=== PATIENT | male | born 1950 | race Caucasian/White ===

== ENCOUNTER → 2020-06-14 09:12 | Outpatient (BNVA) | payer MEDICARE, SELFPAY | PROVIDERS: Family Provider Nurse Practitioner Family; PCP Family Medicine; Visit Provider Nurse Practitioner Family | DX: Z20.822 Contact with and (suspected) exposure to COVID-19 (principal) | CPT/HCPCS: 87635 ==

== ENCOUNTER 2020-06-18 10:50 | Outpatient (CLI) | payer MEDICARE, SELFPAY ==
--- NOTE | 2020-06-18 13:40 | PFTS_ITS ---
Date of Study:06/18/20 Date of Dictation: 06/19/20 MECHANICS: Forced vital capacity (FVC) is reduced . Forced expiratory volume in one second (FEV1) is moderately reduced. FEV1/FVC is normal. FLOW VOLUME LOOP: Normal. LUNG VOLUMES: Not measured DIFFUSING CAPACITY FOR CARBON MONOXIDE: Not measured . INTERPRETATION: The spirometry suggestive of moderate restriction. Lung volumes and gas transfer were not measured. Please correlate clinically. MTDD
== END 2020-06-18 10:51 | disposition home or self-care (01) ==
LOC: RT 10:53
PROVIDERS: PCP Family Medicine; Visit Provider Nurse Practitioner Family
DX: J43.9 Emphysema, unspecified (principal)
CPT/HCPCS: 94010

== ENCOUNTER 2020-09-10 10:57 | Outpatient (CLI) | payer MEDICARE, SELFPAY ==
[2020-09-10 11:57] LABS: Basophils % 0.4 %; Eosinophils % 0.5 %; Hematocrit 49.5 % (42.0-52.0); Hemoglobin 15.6 g/dL (11.7-16.6); Lymphocytes # 1.2 10^3/uL (0.8-4.8); Lymphocytes % 15.3 %; Mean Corpuscular HGB Conc 31.5 g/dL (30.0-36.0); Mean Corpuscular Hemoglobin 30.6 pg (28.0-34.0); Mean Corpuscular Volume 97.1 fL (80-94); Mean Platelet Volume 13.3 fL (7.4-10.4); Monocytes # 0.6 10^3/uL (0.2-0.9); Monocytes % 7.5 %; Neutrophils # 5.82 10^3/uL (1.8-7.7); Neutrophils % 75.3 %; Nucleated Red Blood Cells % 0 %; Platelet Count 108 10^3/cmm (130-400); Red Cell Distribution Width 13.8 % (12.1-15.1); White Blood Count 7.7 10^3/uL (4.0-10.0)
[2020-09-10 12:25] LABS: Slide Review Slide Review Perform
[2020-09-11 18:03] LABS: Immunoglobulin E 175 kU/L (<OR=114)
[2020-09-13 16:18] LABS: Aspergillus Fumigatus, Igg Ab, 13.3 mg/L (<=102)
[2020-09-13 18:03] LABS: Alternaria Alternata (M6) Ige <0.10 kU/L; Alternaria Class 0; Bermuda Class 0; Bermuda Grass (G2) Ige <0.10 kU/L; Cat Dander (E1) Ige <0.10 kU/L; Cat Dander Class 0; D. Farinae Class 0; Dermatophagoides Class 0; Dermatophagoides Farinae (D2) <0.10 kU/L; Dermatophagoides Pteronyssinus <0.10 kU/L; Dog Dander (E5) Ige <0.10 kU/L; Dog Dander Class 0; House Dust (Greer) (H1) Ige <0.10 kU/L; House Dust (Hollister- Stier) <0.10 kU/L; House Dust Class 0; Immunoglobulin E 207 kU/L (<OR=114); Johnson Grass (G10) Ige <0.10 kU/L; Johnson Grass Cl 0; June Grass Class 0; June Grass(Kentucky Blue) (G8) <0.10 kU/L; Meadow Fescue (G4) Ige <0.10 kU/L; Meadow Fescue Class 0; Mucor Racemosus Class 0; Orchard Grass (Cocksfoot) (G3) <0.10 kU/L; Penicillium Class 0; Penicillium Notatum (M1) Ige <0.10 kU/L; Perennial Rye Grass (G5) Ige <0.10 kU/L; Perennial Rye Grass Class 0; Sweet Vernal Class 0; Sweet Vernal Grass (G1) Ige <0.10 kU/L; Timothy Grass (G6) Ige <0.10 kU/L; Timothy Grass Class 0
[2020-09-14 16:53] LABS: Maple (Box Elder) (T1) Ige <0.10 kU/L; Maple Class 0
== END 2020-09-10 10:58 | disposition home or self-care (01) ==
LOC: LAB 11:08
PROVIDERS: PCP Family Medicine; Visit Provider Internal Medicine Pulmonary Disease
DX: J30.89 Other allergic rhinitis (principal)
CPT/HCPCS: 36415; 82785; 85025; 86003

== ENCOUNTER → 2020-09-21 15:51 | Outpatient (BNVA) | payer MEDICARE, SELFPAY | PROVIDERS: PCP Family Medicine; Visit Provider Internal Medicine Pulmonary Disease | DX: Z01.812 Encounter for preprocedural laboratory examination (principal); Z11.52 Encounter for screening for COVID-19; Z20.822 Contact with and (suspected) exposure to COVID-19 | CPT/HCPCS: 87635 ==

== ENCOUNTER 2020-09-27 09:20 | Outpatient (CLI) | payer MEDICARE, SELFPAY ==
--- NOTE | 2020-09-27 10:00 | CT_ITS ---
WS: [id number] LDCT LUNG CANCER SCREENING HISTORY: Cancer screening TECHNIQUE: Axial imaging performed from the apices to 1 cm below the costophrenic angles. Coronal and sagittal reformats are submitted with axial MIP series. All CT scans at [facility] use at least one of these dose optimization techniques: automated exposure control; mA and/or kV adjustment per patient size (includes targeted exams where dose is matched to clinical indication); or iterativ e reconstruction. DLP: 59.33 mGy.cm DIvol: 1.58 mGy COMPARISON: None available. Diagnostic quality: Satisfactory Lung Nodules: No pulmonary nodules or endobronchial lesions. Lungs: Subsegmental atelectasis at the lung bases bilaterally. Chronic changes of emphysema. Heart: Normal size heart. Increased pericardial fat. Other findings: Normal size pulmonary artery. Mild atherosclerotic plaque within the thoracic aorta. CT/CT lung screening 22515 IMPRESSION: LUNG-RADS: 1-Negative FOLLOW UP: 12 Month: Continue annual screening with LDCT OTHER FINDINGS (S MODIFIER): None.
--- NOTE | 2020-09-27 11:14 | PFTS_ITS ---
Date of Study:09/27/20 Date of Dictation: 09/28/2020 MECHANICS: Post bronchodilator Forced vital capacity (FVC) is reduced 67% . Post bronchodilator Forced expiratory volume in one second (FEV1) is moderately reduced 66 % FEV1/FVC is normal. There is no significant response to bronchodilators. FLOW VOLUME LOOP: normal LUNG VOLUMES: Total lung capacity (TLC) is mildly reduced 74%. Residual volume (RV) is normal. DIFFUSING CAPACITY FOR CARBON MONOXIDE: moderately reduced 48 % . INTERPRETATION: The pulmonary function tests consistent with moderate restriction with no significant bronchodilator response. There is mild restriction on lung volumes and moderate gas transfer defect. Overall suggestive of moderate restrictive lung disease likely underlying interstitial lung disease. Clinical correlation recommended. [facility]
== END 2020-09-27 09:21 | disposition home or self-care (01) ==
PROVIDERS: PCP Family Medicine; Visit Provider Internal Medicine Pulmonary Disease
DX: Z12.2 Encounter for screening for malignant neoplasm of respiratory organs (principal); Z87.891 Personal history of nicotine dependence
CPT/HCPCS: 71271; 94060; 94618; 94726; 94729; J7611

== ENCOUNTER 2020-10-04 08:30 | Inpatient (IN) | payer MEDICARE, SELFPAY ==
[2020-10-04] VITALS (11 sets, daily range): BP systolic 88–126; BP diastolic 53–72; PULSE 78–97; RESP 17–22; TEMP 36.8–38.9; O2SAT 90–96; BMI 34.9
--- NOTE | 2020-10-04 08:43 | XR_ITS ---
WS: [id number] Portable AP upright chest, 10/04/2020 Clinical Data: tachypnea Comparison: PA and lateral chest, 08/07/2017. Findings: No nodules, masses or effusions are seen. The heart is normal. The pulmonary vascularity is not increased. No pneumonia or pneumothorax is seen. The aortic arch and descending aorta show tortu osity. The diaphragms are flattened. There is a dextroscoliosis of the thoracic spine. XR/XR chest 1V portable [id number] Impression: Atherosclerosis and hyperinflation.
[2020-10-04] MEDS: sodium chloride 0.9% 1,000 ML 999 ML IV ×2 (09:01→18:51)
[2020-10-04 09:10] LABS: Basophils % 0.2 %; Hematocrit 47.5 % (42.0-52.0); Hemoglobin 15.5 g/dL (11.7-16.6); Lymphocytes # 0.9 10^3/uL (0.8-4.8); Lymphocytes % 18.9 %; Mean Corpuscular HGB Conc 32.6 g/dL (30.0-36.0); Mean Corpuscular Hemoglobin 30.3 pg (28.0-34.0); Mean Corpuscular Volume 92.8 fL (80-94); Monocytes # 0.6 10^3/uL (0.2-0.9); Monocytes % 12.3 %; Neutrophils # 3.19 10^3/uL (1.8-7.7); Neutrophils % 67.5 %; Nucleated Red Blood Cells % 0 %; Platelet Count 85 10^3/cmm (130-400); Red Blood Count 5.12 10^6/uL (4.1-5.3); Red Cell Distribution Width 14.3 % (12.1-15.1); White Blood Count 4.7 10^3/uL (4.0-10.0)
--- NOTE | 2020-10-04 09:12 | W.ED.NAVMDI ---
Documented by User: GABRIELA Salinas 10/06/20 07:22 HPI - Nausea/Vomiting/Diarrhea General: Chief complaint: Nausea/Vomiting/Diarrhea Stated complaint: LOW BP 80/60 Time Seen by Provider: 10/04/20 08:43 History of Present Illness: HPI Narrative: Patient is a 70-year-old male comes to the ED with vomiting and diarrhea. Past medical history of COPD, BPH, hypertension, obstructive sleep apnea. Symptoms started 5 days ago. He says that his cough is increased some and he is having a lot of nasal drainage and congestion. The nasal drainage to the back of his throat is causing him to cough and gag and throw up. He has had 2 episodes of emesis this morning. He states he is eaten anything for about 3 days now. He feels like he is very dehydrated currently and is complaining of his mouth being really dry. Denies any fever, chills, abdominal pain, chest pain, blood in the stool or bladder symptoms. Denies any known Covid 19+ contacts. 2 weeks ago he tested negative for COVID-19. He denies any prior monoclonal antibody treatment. Patient states he has not received the COVID-19 vaccination. Associated nausea: No Associated symtoms: Denies change in vision, chest pain, dysuria, fatigue, headache(s), nausea or palpitations Review of Systems Const: Denies: fever(s), chills or fatigue Eyes: Denies: change in vision or eye discomfort ENMT: Denies: throat pain, odynophagia, nasal discharge or nasal congestion Card: Denies: chest pain, palpitations, edema, swelling of feet/ankles, dyspnea on exertion or orthopnea Resp: Reports: non-productive cough; Denies: dyspnea or productive cough GI: Reports: vomiting and diarrhea; Denies: abdominal pain, nausea, constipation or hematochezia : Denies: flank pain, difficulty urinating, dysuria or hematuria Musc: Denies: neck pain, back pain or extremity swelling Skin/Breast: Denies: rash or new lesions Neuro: Denies: headache(s), numbness in extremities or weakness in extremities PFS ED PFSH: Medical History Allergies BPH with obstruction/lower urinary tract symptoms CVA (cerebral vascular accident) Emphysema lung Encounter for screening for lung cancer Monoclonal gammopathies MINI (obstructive sleep apnea) Paget's disease of the bone Surgical History History of abdominal surgery History of appendectomy History of cholecystectomy Social History Smoking and tobacco status: former smoker Quit status (tobacco): has quit using tobacco Year quit tobacco: 2010 [id number] Second hand smoke exposure: No Smoking risk assessment/counseling performed?: Yes Alcohol intake: former Lives independently: Yes Household members: spouse Marital status: service: No Current occupational status: employed Pets and animals: No History of recent travel: No Current gender identity: Male Physical Exam Const: COMMON NORMALS: no acute distress, patient oriented x3 and alert GENERAL APPEARANCE: cooperative and comfortable HENMT: COMMON NORMALS: normocephalic HEAD & SCALP: normocephalic MOUTH: moist mucous membranes abnormal Details: parched THROAT: posterior oropharynx normal and uvula midline Neck/C-Spine: COMMON NORMALS: supple GENERAL: Yes normal visual inspection Resp: COMMON NORMALS: normal respiratory effort, No retractions, No use of accessory muscles and clear to auscultation bilaterally AUSCULTATION: clear to auscultation bilaterally Cardio: COMMON NORMALS: regular rate, regular rhythm, S1 normal heart sound present, S2 normal heart sound present, No gallops present (Cardio), No clicks present (Cardio), No murmurs present (Cardio) and Peripheral pulses 2+ throughout RATE: regular rate RHYTHM: regular rhythm HEART SOUNDS: S1 normal heart sound present and S2 normal heart sound present PERIPHERAL PULSES: Peripheral pulses 2+ throughout GI: COMMON NORMALS: Normal to inspection, nondistended, normoactive bowel sounds present, Soft to palpation, non-tender and no masses PALPATION: Yes Soft to palpation : COMMON NORMALS: Yes no CVA tenderness BLADDER/KIDNEY EXAM: Yes no CVA tenderness Back/Pelvis: COMMON NORMALS: no CVA tenderness Extremity: COMMON NORMALS: normal to inspection Neuro: COMMON NORMALS: patient oriented x3 and moves all extremities SENSORIUM/ORIENTATION: Yes alert Skin: GENERAL SKIN EXAM: dry skin Course ED course: I spoke with Dr. Marrero about patient case and his need for possible admission due to acute kidney injury. Dr. Marrero agreed. I signed patient out to Dr. Marrero and he will be contacting the hospitalist and getting patient admitted. Vital Signs: Vital signs: Vital Signs Temperature 98.2 F 10/08/20 12:00 Pulse Rate 65 10/08/20 12:00 Respiratory Rate 20 H 10/08/20 12:00 Blood Pressure 137/84 10/08/20 12:00 Pulse Oximetry 94 10/08/20 12:00 MDM - Nausea/Vomiting/Diarrhea MDM Narrative: Medical decision making narrative: Patient is a 70-year-old male who is having vomiting and diarrhea. Patient has a past medical history of COPD. Patient appears very dry on exam, but not in any acute pain. Patient tested positive for COVID-19 and had a creatinine of 3.9. I discussed patient case with Dr. Marrero and and his need for admission due to acute kidney injury. Patient was given 2 L of fluids here in the ED and also given the monoclonal antibody treatment for COVID while here in the ED as well. Dr. Marrero took over patient case to contact hospitalist and have patient admitted. Lab Data: Attestation: I reviewed the patient's lab results. Labs: Lab Results 10/04/20 10/04/20 10/04/20 Range/Units 09:00 09:00 09:38 WBC 4.7 (4.0-10.0) 10^3/ uL RBC 5.12 (4.1-5.3) 10^6/u L Hgb 15.5 (11.7-16.6) g/dL Hct 47.5 (42.0-52.0) % MCV 92.8 (80-94) fL MCH 30.3 (28.0-34.0) pg MCHC 32.6 (30.0-36.0) g/dL RDW 14.3 (12.1-15.1) % Plt Count 85 L (130-400) 10^3/c mm MPV 14.0 H (7.4-10.4) fL Neut % (Auto) 67.5 % Lymph % (Auto) 18.9 % [place]hin % (Auto) 12.3 % Eos % (Auto) 0.0 % Baso % (Auto) 0.2 % Neut # (Auto) 3.19 (1.8-7.7) 10^3/u L Lymph # (Auto) 0.9 (0.8-4.8) 10^3/u L [place] # (Auto) 0.6 (0.2-0.9) 10^3/u L Eos # (Auto) 0.0 (0.0-0.8) 10^3/u L Baso # (Auto) 0.0 (0.0-0.1) 10^3/u L Nucleated RBC % (a uto) 0 % Nucleated RBCs # 0.0 /100WBC Sodium Cancelled 135 L Potassium Cancelled 4.7 Chloride Cancelled 100 Carbon Dioxide Cancelled 22 Anion Gap Cancelled 17.7 BUN Cancelled 40 H Creatinine Cancelled 3.7 H GFR Calculation Cancelled 16.4 L Glucose Cancelled 109 Calculated Osmolal ity Cancelled 290 Calcium Cancelled 7.3 L Iron (59-158) ug/dL TIBC mcg/dl % Saturation (20-50) % Unsat Iron Binding (112-347) ug/dL Total Bilirubin Cancelled 0.3 AST Cancelled 32 ALT Cancelled 32 Alkaline Phosphata se Cancelled 62 NT-Pro-B Natriuret Pep (0-125) pg/mL Total Protein Cancelled 6.7 Albumin Cancelled 3.7 Globulin Cancelled 3.0 Lipase Cancelled 87 H Procalcitonin (0-0.5) ng/mL TSH (0.27-4.20) uIU/ mL Urine Color (Yellow) Urine Appearance (CLEAR) Urine pH (5-7) Ur Specific Gravit y (1.005-1.030) Urine Protein (Negative) Urine Glucose (UA) (Normal) Urine Ketones (Negative) Urine Blood (Negative) Urine Nitrate (Negative) Urine Bilirubin (Negative) Urine Urobilinogen (Negative) mg/dL Ur Leukocyte Ethel ase (Negative) Urine RBC (0-2) /hpf Urine WBC (0-5) /hpf Ur Squamous Epith Cells (0-5) /hpf Amorphous Sediment Urine Bacteria (NONE) /hpf Ur Random Sodium mmol/L Ur Random Potassiu m mmol/L Ur Random Chloride mmol/L Urine Creatinine (39-259) mg/dL SARS-CoV-2 Ag (Rap id) (Negative) 07/15/21 07/15/21 07/15/21 Range/Units 09:38 10:00 10:47 WBC (4.0-10.0) 10^3/ uL RBC (4.1-5.3) 10^6/u L Hgb (11.7-16.6) g/dL Hct (42.0-52.0) % MCV (80-94) fL MCH (28.0-34.0) pg MCHC (30.0-36.0) g/dL RDW (12.1-15.1) % Plt Count (130-400) 10^3/c mm MPV (7.4-10.4) fL Neut % (Auto) % Lymph % (Auto) % [place] % (Auto) % Eos % (Auto) % Baso % (Auto) % Neut # (Auto) (1.8-7.7) 10^3/u L Lymph # (Auto) (0.8-4.8) 10^3/u L [place] # (Auto) (0.2-0.9) 10^3/u L Eos # (Auto) (0.0-0.8) 10^3/u L Baso # (Auto) (0.0-0.1) 10^3/u L Nucleated RBC % (a uto) % Nucleated RBCs # /100WBC Sodium Potassium Chloride Carbon Dioxide Anion Gap BUN Creatinine GFR Calculation Glucose Calculated Osmolal ity Calcium Iron 19 L (59-158) ug/dL TIBC 227 mcg/dl % Saturation 8.3 L (20-50) % Unsat Iron Binding 208 (112-347) ug/dL Total Bilirubin AST ALT Alkaline Phosphata se NT-Pro-B Natriuret Pep 25 (0-125) pg/mL Total Protein Albumin Globulin Lipase Procalcitonin 0.21 (0-0.5) ng/mL TSH 2.73 (0.27-4.20) uIU/ mL Urine Color Yellow (Yellow) Urine Appearance Clear (CLEAR) Urine pH 5 (5-7) Ur Specific Gravit y 1.020 (1.005-1.030) Urine Protein 1+ H (Negative) Urine Glucose (UA) Norm (Normal) Urine Ketones Negative (Negative) Urine Blood 2+ H (Negative) Urine Nitrate Negative (Negative) Urine Bilirubin Neg (Negative) Urine Urobilinogen Norm (Negative) mg/dL Ur Leukocyte Ethel ase Negative (Negative) Urine RBC None (0-2) /hpf Urine WBC Rare (0-5) /hpf Ur Squamous Epith Cells Rare (0-5) /hpf Amorphous Sediment Not Reportable Urine Bacteria 1+ H (NONE) /hpf Ur Random Sodium mmol/L Ur Random Potassiu m mmol/L Ur Random Chloride mmol/L Urine Creatinine (39-259) mg/dL SARS-CoV-2 Ag (Rap id) Positive H (Negative) 10/04/20 Range/Units 10:47 WBC (4.0-10.0) 10^3/ uL RBC (4.1-5.3) 10^6/u L Hgb (11.7-16.6) g/dL Hct (42.0-52.0) % MCV (80-94) fL MCH (28.0-34.0) pg MCHC (30.0-36.0) g/dL RDW (12.1-15.1) % Plt Count (130-400) 10^3/c mm MPV (7.4-10.4) fL Neut % (Auto) % Lymph % (Auto) % [place] % (Auto) % Eos % (Auto) % Baso % (Auto) % Neut # (Auto) (1.8-7.7) 10^3/u L Lymph # (Auto) (0.8-4.8) 10^3/u L [place] # (Auto) (0.2-0.9) 10^3/u L Eos # (Auto) (0.0-0.8) 10^3/u L Baso # (Auto) (0.0-0.1) 10^3/u L Nucleated RBC % (a uto) % Nucleated RBCs # /100WBC Sodium Potassium Chloride Carbon Dioxide Anion Gap BUN Creatinine GFR Calculation Glucose Calculated Osmolal ity Calcium Iron (59-158) ug/dL TIBC mcg/dl % Saturation (20-50) % Unsat Iron Binding (112-347) ug/dL Total Bilirubin AST ALT Alkaline Phosphata se NT-Pro-B Natriuret Pep (0-125) pg/mL Total Protein Albumin Globulin Lipase Procalcitonin (0-0.5) ng/mL TSH (0.27-4.20) uIU/ mL Urine Color (Yellow) Urine Appearance (CLEAR) Urine pH (5-7) Ur Specific Gravit y (1.005-1.030) Urine Protein (Negative) Urine Glucose (UA) (Normal) Urine Ketones (Negative) Urine Blood (Negative) Urine Nitrate (Negative) Urine Bilirubin (Negative) Urine Urobilinogen (Negative) mg/dL Ur Leukocyte Ethel ase (Negative) Urine RBC (0-2) /hpf Urine WBC (0-5) /hpf Ur Squamous Epith Cells (0-5) /hpf Amorphous Sediment Urine Bacteria (NONE) /hpf Ur Random Sodium 27 mmol/L Ur Random Potassiu m 43 mmol/L Ur Random Chloride 21 mmol/L Urine Creatinine 281 H (39-259) mg/dL SARS-CoV-2 Ag (Rap id) (Negative) Imaging Data^: CXR: Attestation: I personally reviewed and interpreted this imaging study as follows: Radiologist's impression: [address] [address] XRay Report Signed Patient: Govind Garcia Unit #: [id number] : 1950 Age/Sex: 70 / M ADM Date: 10/04/20 Loc: ER Room/Bed: Attending Dr: Ordering Provider/Ordering MD: Fan Jernigan Date of Service: 10/04/20 Procedure(s): XR chest 1V portable [id number] Accession Number(s): [id number] Report Number: [id number] WS: [id number] Portable AP upright chest, 10/04/2020 Clinical Data: tachypnea Comparison: PA and lateral chest, 08/07/2017. Findings: No nodules, masses or effusions are seen. The heart is normal. The pulmonary vascularity is not increased. No pneumonia or pneumothorax is seen. The aortic arch and descending aorta show tortuosity. The diaphragms are flattened. There is a dextroscoliosis of the thoracic spine. XR/XR chest 1V portable [id number] Impression: Atherosclerosis and hyperinflation. Dictated By: Hyacinth Rapp MD Signed By: Hyacinth Rapp MD Signed Date/Time: 10/04/20854 DD/ 3 Discharge Plan Discharge Patient Disposition: Admitted As Inpatient Admit Provider: Norberto Murdock Condition: Stable Discharge Diet: Advance as tolerated and Diabetic Discharge Activity: Increase activity as tolerated and Oxygen as instructed Sign Out Sign Out Data: Patient Sign Out occurred on 10/04/20 at 17:04. Patient's care was discussed, and care was transferred from to Abdelrahman Marrero DO. Coding Level of Care Code ED Ed Case Manager for Chg Fwd Exam Comprehensive Documented by User: Abdelrahman Marrero DO 10/08/20 16:06 HPI - Nausea/Vomiting/Diarrhea General: Chief complaint: Nausea/Vomiting/Diarrhea Stated complaint: LOW BP 80/60 Time Seen by Provider: 10/04/20 08:43 History of Present Illness: HPI Narrative: 70-year-old male with nausea vomiting and diarrhea blood pressures been loss been going on for 5 days. He denies any fever sweats chills shortness of breath he is on apixaban. MD elicited complaint: nausea, vomiting and diarrhea Pertinent past history: anorexia Onset (ago): day(s) Description of vomiting: food contents and watery Associated nausea: Yes Associated abdominal pain: Yes Location of pain: Diffuse Pain consistency: constant Severity: mild Quality: cramping Exacerbating factors: none Relieving factors: none Associated symtoms: Reports bloating, nausea and weakness; Denies altered mental status, anxiety, change in vision, chest pain, cough, diaphoresis, decreased urine output, dizziness, dysuria, epistaxis, fatigue, fecal incontinence, fevers/chills, headache(s), anorexia, malaise, myalgias, numbness, palpitations, rash, short of breath, syncope, tenesmus or tinnitus Review of Systems Const: Denies: fatigue, malaise or diaphoresis Eyes: Denies: change in vision ENMT: Denies: tinnitus or epistaxis Card: Denies: chest pain, palpitations or syncope Resp: Reports: non-productive cough; Denies: dyspnea or productive cough GI: Reports: nausea and bloating; Denies: fecal incontinence : Denies: dysuria Skin/Breast: Denies: rash or pruritus Neuro: Denies: headache(s) or dizziness Psych: Denies: anxiety PFSH ED PFSH: Medical History Allergies BPH with obstruction/lower urinary tract symptoms CVA (cerebral vascular accident) Emphysema lung Encounter for screening for lung cancer Monoclonal gammopathies MINI (obstructive sleep apnea) Paget's disease of the bone Surgical History History of abdominal surgery History of appendectomy History of cholecystectomy Social History Smoking and tobacco status: former smoker Quit status (tobacco): has quit using tobacco Year quit tobacco: 2010 [id number] Second hand smoke exposure: No Smoking risk assessment/counseling performed?: Yes Alcohol intake: former Lives independently: Yes Household members: spouse Marital status: service: No Current occupational status: employed Pets and animals: No History of recent travel: No Current gender identity: Male Physical Exam Const: COMMON NORMALS: no acute distress EXAM LIMITATIONS: no altered mental status GENERAL APPEARANCE: cooperative and comfortable ORIENTATION/CONSCIOUSNESS: Yes awake, Yes oriented to person, Yes oriented to place and Yes oriented to time HENMT: COMMON NORMALS: normocephalic, atraumatic, hearing grossly normal bilaterally, external ears normal, EAC's normal, TM's normal bilaterally, Normal nasal mucous membranes and turbinates present, moist oral mucous membranes and oropharynx normal HEAD & SCALP: normocephalic and atraumatic NOSE: Normal nasal mucous membranes and turbinates present EXTERNAL EAR: Yes external ears normal EXTERNAL AUDITORY CANAL: EAC's normal TYMPANIC MEMBRANE: TM's normal bilaterally Eye: COMMON NORMALS: Equal, round and reactive pupils present, EOMs intact bilaterally, conjunctivae normal and no scleral icterus CONJUNCTIVA: Yes conjunctivae normal PUPIL: Yes Equal, round and reactive pupils present Neck/C-Spine: COMMON NORMALS: full ROM, no lymphadenopathy, supple and no JVD Lymph: LYMPHATIC: no lymphadenopathy noted and no lymphedema noted Resp: COMMON NORMALS: normal respiratory effort, No retractions, No use of accessory muscles and clear to auscultation bilaterally AUSCULTATION: clear to auscultation bilaterally Cardio: COMMON NORMALS: no JVD, regular rate, regular rhythm and No murmurs present (Cardio) RATE: regular rate RHYTHM: regular rhythm GI: COMMON NORMALS: Soft to palpation and No hepatosplenomegaly present AUSCULTATION: Yes normoactive bowel sounds PALPATION: Yes Soft to palpation, No Tenderness to palpation present (GI), No Guarding due to palpation present (GI) and Yes No hepatosplenomegaly present Extremity: COMMON NORMALS: normal to inspection, capillary refill normal, no clubbing, cyanosis or edema, no calf tenderness and no pedal edema Neuro: SENSORIUM/ORIENTATION: Yes oriented to person, Yes oriented to place and Yes oriented to time Skin: COMMON NORMALS: no rashes or lesions noted GENERAL SKIN EXAM: no rashes or lesions noted Course Vital Signs: Vital signs: Vital Signs Temperature 98.2 F 10/08/20 12:00 Pulse Rate 65 10/08/20 12:00 Respiratory Rate 20 H 10/08/20 12:00 Blood Pressure 137/84 10/08/20 12:00 Pulse Oximetry 94 10/08/20 12:00 MDM - Nausea/Vomiting/Diarrhea MDM Narrative: Medical decision making narrative: Reviewed case discussed with GABRIELA Jernigan. Agree with assessment and plan seen the patient myself and examined him see above admit to the hospitalist orders written. Lab Data: Labs: Lab Results 10/04/20 10/04/20 10/04/20 Range/Units 09:00 09:00 09:38 WBC 4.7 (4.0-10.0) 10^3/ uL RBC 5.12 (4.1-5.3) 10^6/u L Hgb 15.5 (11.7-16.6) g/dL Hct 47.5 (42.0-52.0) % MCV 92.8 (80-94) fL MCH 30.3 (28.0-34.0) pg MCHC 32.6 (30.0-36.0) g/dL RDW 14.3 (12.1-15.1) % Plt Count 85 L (130-400) 10^3/c mm MPV 14.0 H (7.4-10.4) fL Neut % (Auto) 67.5 % Lymph % (Auto) 18.9 % [place] % (Auto) 12.3 % Eos % (Auto) 0.0 % Baso % (Auto) 0.2 % Neut # (Auto) 3.19 (1.8-7.7) 10^3/u L Lymph # (Auto) 0.9 (0.8-4.8) 10^3/u L [place] # (Auto) 0.6 (0.2-0.9) 10^3/u L Eos # (Auto) 0.0 (0.0-0.8) 10^3/u L Baso # (Auto) 0.0 (0.0-0.1) 10^3/u L Nucleated RBC % (a uto) 0 % Nucleated RBCs # 0.0 /100WBC Sodium Cancelled 135 L Potassium Cancelled 4.7 Chloride Cancelled 100 Carbon Dioxide Cancelled 22 Anion Gap Cancelled 17.7 BUN Cancelled 40 H Creatinine Cancelled 3.7 H GFR Calculation Cancelled 16.4 L Glucose Cancelled 109 Calculated Osmolal ity Cancelled 290 Calcium Cancelled 7.3 L Iron (59-158) ug/dL TIBC mcg/dl % Saturation (20-50) % Unsat Iron Binding (112-347) ug/dL Total Bilirubin Cancelled 0.3 AST Cancelled 32 ALT Cancelled 32 Alkaline Phosphata se Cancelled 62 NT-Pro-B Natriuret Pep (0-125) pg/mL Total Protein Cancelled 6.7 Albumin Cancelled 3.7 Globulin Cancelled 3.0 Lipase Cancelled 87 H Procalcitonin (0-0.5) ng/mL TSH (0.27-4.20) uIU/ mL Urine Color (Yellow) Urine Appearance (CLEAR) Urine pH (5-7) Ur Specific Gravit y (1.005-1.030) Urine Protein (Negative) Urine Glucose (UA) (Normal) Urine Ketones (Negative) Urine Blood (Negative) Urine Nitrate (Negative) Urine Bilirubin (Negative) Urine Urobilinogen (Negative) mg/dL Ur Leukocyte Ethel ase (Negative) Urine RBC (0-2) /hpf Urine WBC (0-5) /hpf Ur Squamous Epith Cells (0-5) /hpf Amorphous Sediment Urine Bacteria (NONE) /hpf Ur Random Sodium mmol/L Ur Random Potassiu m mmol/L Ur Random Chloride mmol/L Urine Creatinine (39-259) mg/dL SARS-CoV-2 Ag (Rap id) (Negative) 10/04/20 10/04/20 10/04/20 Range/Units 09:38 10:00 10:47 WBC (4.0-10.0) 10^3/ uL RBC (4.1-5.3) 10^6/u L Hgb (11.7-16.6) g/dL Hct (42.0-52.0) % MCV (80-94) fL MCH (28.0-34.0) pg MCHC (30.0-36.0) g/dL RDW (12.1-15.1) % Plt Count (130-400) 10^3/c mm MPV (7.4-10.4) fL Neut % (Auto) % Lymph % (Auto) % [place] % (Auto) % Eos % (Auto) % Baso % (Auto) % Neut # (Auto) (1.8-7.7) 10^3/u L Lymph # (Auto) (0.8-4.8) 10^3/u L [place] # (Auto) (0.2-0.9) 10^3/u L Eos # (Auto) (0.0-0.8) 10^3/u L Baso # (Auto) (0.0-0.1) 10^3/u L Nucleated RBC % (a uto) % Nucleated RBCs # /100WBC Sodium Potassium Chloride Carbon Dioxide Anion Gap BUN Creatinine GFR Calculation Glucose Calculated Osmolal ity Calcium Iron 19 L (59-158) ug/dL TIBC 227 mcg/dl % Saturation 8.3 L (20-50) % Unsat Iron Binding 208 (112-347) ug/dL Total Bilirubin AST ALT Alkaline Phosphata se NT-Pro-B Natriuret Pep 25 (0-125) pg/mL Total Protein Albumin Globulin Lipase Procalcitonin 0.21 (0-0.5) ng/mL TSH 2.73 (0.27-4.20) uIU/ mL Urine Color Yellow (Yellow) Urine Appearance Clear (CLEAR) Urine pH 5 (5-7) Ur Specific Gravit y 1.020 (1.005-1.030) Urine Protein 1+ H (Negative) Urine Glucose (UA) Norm (Normal) Urine Ketones Negative (Negative) Urine Blood 2+ H (Negative) Urine Nitrate Negative (Negative) Urine Bilirubin Neg (Negative) Urine Urobilinogen Norm (Negative) mg/dL Ur Leukocyte Ethel ase Negative (Negative) Urine RBC None (0-2) /hpf Urine WBC Rare (0-5) /hpf Ur Squamous Epith Cells Rare (0-5) /hpf Amorphous Sediment Not Reportable Urine Bacteria 1+ H (NONE) /hpf Ur Random Sodium mmol/L Ur Random Potassiu m mmol/L Ur Random Chloride mmol/L Urine Creatinine (39-259) mg/dL SARS-CoV-2 Ag (Rap id) Positive H (Negative) 10/04/20 Range/Units 10:47 WBC (4.0-10.0) 10^3/ uL RBC (4.1-5.3) 10^6/u L Hgb (11.7-16.6) g/dL Hct (42.0-52.0) % MCV (80-94) fL MCH (28.0-34.0) pg MCHC (30.0-36.0) g/dL RDW (12.1-15.1) % Plt Count (130-400) 10^3/c mm MPV (7.4-10.4) fL Neut % (Auto) % Lymph % (Auto) % [place] % (Auto) % Eos % (Auto) % Baso % (Auto) % Neut # (Auto) (1.8-7.7) 10^3/u L Lymph # (Auto) (0.8-4.8) 10^3/u L [place] # (Auto) (0.2-0.9) 10^3/u L Eos # (Auto) (0.0-0.8) 10^3/u L Baso # (Auto) (0.0-0.1) 10^3/u L Nucleated RBC % (a uto) % Nucleated RBCs # /100WBC Sodium Potassium Chloride Carbon Dioxide Anion Gap BUN Creatinine GFR Calculation Glucose Calculated Osmolal ity Calcium Iron (59-158) ug/dL TIBC mcg/dl % Saturation (20-50) % Unsat Iron Binding (112-347) ug/dL Total Bilirubin AST ALT Alkaline Phosphata se NT-Pro-B Natriuret Pep (0-125) pg/mL Total Protein Albumin Globulin Lipase Procalcitonin (0-0.5) ng/mL TSH (0.27-4.20) uIU/ mL Urine Color (Yellow) Urine Appearance (CLEAR) Urine pH (5-7) Ur Specific Gravit y (1.005-1.030) Urine Protein (Negative) Urine Glucose (UA) (Normal) Urine Ketones (Negative) Urine Blood (Negative) Urine Nitrate (Negative) Urine Bilirubin (Negative) Urine Urobilinogen (Negative) mg/dL Ur Leukocyte Ethel ase (Negative) Urine RBC (0-2) /hpf Urine WBC (0-5) /hpf Ur Squamous Epith Cells (0-5) /hpf Amorphous Sediment Urine Bacteria (NONE) /hpf Ur Random Sodium 27 mmol/L Ur Random Potassiu m 43 mmol/L Ur Random Chloride 21 mmol/L Urine Creatinine 281 H (39-259) mg/dL SARS-CoV-2 Ag (Rap id) (Negative) Discharge Plan Discharge Patient Disposition: Admitted As Inpatient Admit Provider: Norberto Murdock Condition: Stable Discharge Diet: Advance as tolerated and Diabetic Discharge Activity: Increase activity as tolerated and Oxygen as instructed Sign Out Sign Out Data: Patient Sign Out occurred on 10/04/20 at 17:04. Patient's care was discussed, and care was transferred from to Abdelrahman Marrero DO. Coding Level of Care Code ED Ed Case Manager for Joao Fwd Exam Comprehensive
[2020-10-04 10:09] LABS: Alanine Aminotransferase 32 U/L (0-41); Albumin Level 3.7 g/dL (3.5-5.2); Alkaline Phosphatase 62 IU/L (40-130); Anion Gap 17.7 (5-19); Aspartate Amino Transferase 32 U/L (0-40); Blood Urea Nitrogen 40 mg/dL (8-23); Calcium 7.3 mg/dL (8.5-10.5); Carbon Dioxide 22 mmol/L (22-29); Chloride 100 mmol/L (98-107); Glomerular Filtration Rate 16.4 mL/min (90-130); Glucose 109 mg/dL (65-115); Lipase 87 U/L (13-60); Osmolality Calculated 290 mOsm/kg (285-295); Potassium 4.7 mmol/L (3.5-5.1); Sodium 135 mmol/L (136-145); Total Bilirubin 0.3 mg/dL (0.15-1.2); Total Protein 6.7 g/dL (6.6-8.7)
[2020-10-04 10:35] LABS: SARS Covid-2 Antigen Positive (Negative)
[2020-10-04 11:09] LABS: Urine Appearance Clear (CLEAR); Urine Color Yellow (Yellow); pH Urine 5 (5-7)
[2020-10-04 11:10] LABS: Bilirubin Urine Neg (Negative); Blood Urine 2+ (Negative); Glucose Urine UA Norm (Normal); Ketones Urine Negative (Negative); Leukocyte Esterase Urine Negative (Negative); Nitrate Urine Negative (Negative); Protein Urine 1+ (Negative); Squamous Epithelial Cell Urine RARE /hpf (0-5); Urobilinogen Urine Norm (Negative); WBC Urine RARE /hpf (0-5)
[2020-10-04 11:11] LABS: Bacteria Urine 1+ /hpf
--- NOTE | 2020-10-04 12:36 | PC.PHAR ---
pt states he takes care of his own medications-pt states to call his she has his med bottles-called pts pts states the pt is taking atorvastatin and lovastatin states both of the bottles are in the pts med bag-called [facility] talked to darin/nurse states the lovastatin was dced and changed to atorvastatin-lovastatin 20mg filled on 09/12/20 90d/s-atorvastatin 40mg filled on 09/17/20 30d/s-notes are made in the pharmacy comments
--- NOTE | 2020-10-04 18:12 | CTR_ITS ---
PROCEDURE INFORMATION: Exam: CT Chest Without Contrast; Diagnostic Exam date and time: 10/04/2020 6:12 PM Age: 70 years old Clinical indication: Nausea and vomiting and other: Diarrhea; Cough and shortness of breath; Additional info: Covid, catrina, R/O obstructive nephropathy TECHNIQUE: Imaging protocol: Diagnostic computed tomography of the chest without contrast. Radiation optimization: All CT scans at this facility use at least one of these dose optimization techniques: automated exposure control; mA and/or kV adjustment per patient size (includes targeted exams where dose is matched to clinical indication); or iterative reconstruction. COMPARISON: CT chest w con* [id number] 01/16/2017 10:48 AM RADIATION DOSE METRICS: Total DLP (mGy-cm): 2897.03 FINDINGS: Lungs: Emphysematous lung changes. No focal airspace lesions are identified. Negative for endobronchial obstruction. Pleural spaces: Unremarkable. No pneumothorax. No pleural effusion. Heart: Unremarkable. No cardiomegaly. No pericardial effusion. Mediastinal space: No thoracic esophageal wall thickening. Aorta: Unremarkable. No aortic aneurysm. Lymph nodes: Unremarkable. No enlarged lymph nodes. Bones/joints: The thoracic spine demonstrates moderate degenerative changes at multiple levels. No acute thoracic fractures. Soft tissues: Unremarkable. IMPRESSION: No focal acute pulmonary disease identified. PROCEDURE INFORMATION: Exam: CT Abdomen And Pelvis Without Contrast Exam date and time: 10/04/2020 6:12 PM Age: 70 years old Clinical indication: Nausea and vomiting and other: Diarrhea; Cough and shortness of breath; Additional info: Covid, catrina, R/O obstructive nephropathy TECHNIQUE: Imaging protocol: Computed tomography of the abdomen and pelvis without contrast. Radiation optimization: All CT scans at this facility use at least one of these dose optimization techniques: automated exposure control; mA and/or kV adjustment per patient size (includes targeted exams where dose is matched to clinical indication); or iterative reconstruction. COMPARISON: CT chest w con* [id number] 01/16/2017 10:48 AM RADIATION DOSE METRICS: Total DLP (mGy-cm): 2897.03 FINDINGS: Liver: Normal. No mass. Gallbladder and bile ducts: Cholecystectomy. Nondilated biliary system. Pancreas: Normal. No ductal dilation. Spleen: Normal. No splenomegaly. Adrenal glands: Normal. No mass. Kidneys and ureters: Mild cortical atrophy of both kidneys. Negative hydronephrosis. No renal stones. Small incidental simple left renal cortical cyst. Stomach and bowel: Unremarkable. No obstruction. No mucosal thickening. Appendix: No evidence of appendicitis. Intraperitoneal space: Unremarkable. No free air. No significant fluid collection. Vasculature: Diffuse atherosclerosis. Negative for abdominal aortic aneurysm. Lymph nodes: Unremarkable. No enlarged lymph nodes. Urinary bladder: Unremarkable as visualized. Reproductive: Mild prostate gland enlargement. Bones/joints: Trabecular thickening changes of the right iliac bone. Cortical thickening and heterogeneous mineralization pattern of the L1 vertebral body. No acute lumbar spine fracture or pelvic fracture. Soft tissues: Unremarkable. CT/CT chest abd pel wo con IMPRESSION: 1. Negative for acute abdominopelvic pathology. 2. Negative for renal obstruction. 3. Mineralization changes of the L1 vertebral body and the right iliac bone may represent sequela of Paget disease. COMMENTS: Consistent with the [employer]'s Incidental Findings Committee white paper (J Am Boris Radiol 2018): Any incidental renal lesion less than 1 cm or classified as too small to characterize, or any incidental cystic renal lesion characterized as simple-appearing, is likely benign. No follow-up imaging is recommended for these lesions per consensus recommendations based on imaging criteria. Radiation Dose CTDIVOL = (mGy): DLP = 2897.03~2897.03 (mGy-cm)
--- NOTE | 2020-10-04 18:19 | P.HP_ITS ---
Providers/Chief Complaint Admitting Physician: Norberto Murdock MD Primary Care Provider: Kain Moran MD Chief Complaint: LOW BP 80/60 History of Present Illness Govind Garcia is a 70 year old male with past medical history of COPD, hypertension, hyperlipidemia, ex-smoker, Paget's disease, obesity, IgG lambda monoclonal gammopathy, restrictive lung disease who follows up with Dr. Nobles presented to the emergency room with nausea vomiting and diarrhea which started 5 days ago. Is also reporting rhinorrhea cough which is productive in nature. Labs are notable for CARLEY with creatinine up to 3.7, elevated inflammatory markers and a positive rapid antigen for COVID-19. CT of the chest with emphysematous lung changes without focal airspace disease. He has a history of COPD and emphysema. CT of the abdomen pelvis without any acute abnormalities. Review of Systems General: Reports: 10 or more systems reviewed and unremarkable except in HPI and below Const: Denies: fever(s), chills, body aches, change in appetite, change in weight, malaise, night sweats, diaphoresis, change in sleep pattern, daytime sleepiness or snoring Eyes: Denies: change in vision, blurry vision, photophobia, eye discomfort or eye discharge ENMT: Denies: throat pain, enlarged tonsils, hoarseness, mouth pain, oral sores, dry mouth, tinnitus, nasal congestion or post nasal drip Card: Denies: chest pain, palpitations, irregular heart rhythm, edema, swelling of feet/ankles, lightheadedness, syncope, pre-syncope, dyspnea on exertion, orthopnea, leg pain with exertion or acrocyanosis Resp: Reports: productive cough; Denies: dyspnea, non-productive cough, wheezing, stridor, pain on inspiration, change in phlegm color, hemoptysis or chest congestion GI: Denies: abdominal pain, nausea, vomiting, hematemesis, coffee ground emesis, dysphagia, heartburn, diarrhea, constipation, bloating, GI cramping, change in bowel habits, pain on defecation, hematochezia or melena : Denies: flank pain, difficulty urinating, dysuria, urinary frequency, urinary urgency, urinary hesitancy, urinary dribbling, difficulty starting urination, change in urine stream, nocturia or hematuria Musc: Denies: neck pain, back pain, extremity pain, joint pain, joint swelling, joint redness, joint stiffness or limited range of motion Neuro: Denies: headache(s), numbness in extremities, weakness in extremities, sensory changes, lack of coordination, difficulty walking, frequent falls, dizziness, vertigo, confusion, Slurred speech present, difficulty communicating thoughts or seizure-like activity Psych: Denies: anxiety, depression, mood swings, panic attacks, hopelessness or irritability Endo: Denies: polyuria, polydipsia, tired all the time, cold intolerance, excessive sweating, flushing or heat intolerance Joselito/Lymph: Denies: easy bruising or easy bleeding All/Imm: Denies: tongue swelling, facial swelling or acute wheezing Medications/Allergies Home Medications Medication Instructions Recorded Confirmed Last Taken Type albuterol sulfate 90 mcg/actuation 2 puff INHALATION Q4H PRN 08/30/20 10/04/20 Unknown History aerosol inhaler alendronate 70 mg tablet 70 mg PO Q7D 08/30/20 10/04/20 Unknown History apixaban 5 mg tablet 5 mg PO BID 08/30/20 10/04/20 10/04/20 08:00 History atorvastatin 40 mg tablet 40 mg PO DAILY 08/30/20 10/04/20 Unknown History cetirizine 10 mg tablet 10 mg PO DAILY 08/30/20 10/04/20 Unknown History lisinopril 2.5 mg tablet 2.5 mg PO QPM 08/30/20 10/04/20 Unknown History lisinopril 20 mg tablet 20 mg PO BID 08/30/20 10/04/20 10/04/20 08:00 History metoprolol tartrate 25 mg tablet 25 mg PO BID 08/30/20 10/04/20 10/04/20 08:00 History montelukast 10 mg tablet 10 mg PO DAILY 08/30/20 10/04/20 Unknown History budesonide-formoterol HFA 160 2 puff INHALATION BID #10.2 g 09/10/20 10/04/20 Unknown Rx mcg-4.5 mcg/actuation aerosol inhaler lovastatin 20 mg tablet 20 mg PO DAILY 09/10/20 10/04/20 Unknown History acetaminophen [Tylenol Extra 1,500 mg PO PRN 10/04/20 10/04/20 Unknown History Strength] coenzyme Q10 [CoQ-10] 100 mg PO DAILY 10/04/20 10/04/20 Unknown History [id number]-acetaminophen 20 ml PO BEDTIME PRN 10/04/20 10/04/20 Unknown History [Ivelisse NaylorRossychrista Severe Cold-Flu] tamsulosin 0.4 mg PO DAILY 10/04/20 10/04/20 Unknown History Allergies Allergy/AdvReac Type Severity Reaction Status Date / Time No Known Allergies Allergy Verified 10/04/20 12:34 PFSH Acute PFSH: Medical History Allergies BPH with obstruction/lower urinary tract symptoms CVA (cerebral vascular accident) Emphysema lung Encounter for screening for lung cancer Monoclonal gammopathies MINI (obstructive sleep apnea) Paget's disease of the bone Surgical History History of abdominal surgery History of appendectomy History of cholecystectomy Social History Smoking and tobacco status: former smoker Quit status (tobacco): has quit using tobacco Year quit tobacco: 2010 [id number] Second hand smoke exposure: No Smoking risk assessment/counseling performed?: Yes Alcohol intake: former Lives independently: Yes Household members: spouse Marital status: service: No Current occupational status: employed Pets and animals: No History of recent travel: No Current gender identity: Male Vitals/I&O/Wt Last Vital Signs Temp 98.4 F 10/04/20 09:17 Pulse 96 10/04/20 15:49 Resp 17 10/04/20 12:53 BP 96/59 10/04/20 15:49 Pulse Ox 92 10/04/20 15:49 10/04/20 10/04/20 10/04/20 06:59 14:59 22:59 Intake Total 1060 / 1060 Balance 1060 / 1060 Weight last 48 hrs Weight 127.006 kg Physical Exam Narrative: EXAM NARRATIVE: General: No acute distress, AO x3, morbidly obese, on room air saturating 90% HEENT: PERRLA, pupils bilaterally equal and reactive Chest: Bronchial breath sounds bilaterally, diffuse rhonchi all over the lung hunter, equal good air entry bilaterally CVS: S1-S2 regular, no murmurs, no tachycardia, no gallops, no rubs Abdomen: Soft, nontender, no organomegaly, bowel sounds present Neuro: No focal deficits, no facial deformity, AO x3, power 5/5 in all limbs Data : 10/05/20 04:41 10/05/20 04:41 A&P Assessment and plan (1) COVID-19: Status: Acute (2) CARLEY (acute kidney injury): Likely related to dehydration from GI losses. Status: Acute (3) Restrictive lung disease: Status: Acute (4) MINI (obstructive sleep apnea): Status: Acute (5) History of DVT (deep vein thrombosis): Status: Acute (6) Chronic anticoagulation: Status: Acute (7) Obesity (BMI 30-39.9): Status: Acute Additional A&P Information Acute kidney injury: Most likely secondary dehydration versus possible sepsis from COVID-19. Check urine lites, urine creatinine, urine eosinophils. Check CT abdomen pelvis without contrast to rule out obstructive nephropathy. Strict input output charting, daily weights. Normal saline at 75 cc/h. No signs of metabolic acidosis or electrolyte abnormality. Medical reconciliation done for nephrotoxic drugs. Hold off on home dose of lisinopril for now. Monitor BMP daily. COVID-19 pneumonia: On room air currently. Post monoclonal antibody infusion in the ER. Keep saturation 88 to 90% %. Monitor inflammatory markers including LDH, ferritin, D-dimer, CRP, ESR. Advair, Spiriva. Vitamin C, zinc. Tessalon Perles. Incentive spirometry. CT chest without contrast. Continue home dose of Eliquis 5 mg twice daily. As patient is not requiring any oxygen for now we will hold off on starting dexamethasone and remdesivir. If inflammatory markers trending up can start on dexamethasone. Hypertension: Goal blood pressure less than 140/90 mmHg with MAP over 65. Hold off on starting antihypertensives for now as blood pressure is soft. IV fluids as above. We will continue to monitor. History of restrictive lung disease/COPD: Continue Advair, Spiriva as above. Oxygen supplementation keeping saturation over 88%. Currently on room air. History of DVT: Continue home dose of Eliquis. BPH: Continue home dose of Flomax. Attestations Medical Necessity Statement*: Admit more than 2 MN for CARLEY, COVID 19 Time Spent in Patient Care: Greater than 35 minutes (>than 50% of time spent in counselling and/or direct pt care on unit) . Coding Level of Care Code Acute Clinical Nurse Educator for [facility] Fwd Diagnoses COVID-19 U07.1 CARLEY (acute kidney injury) N17.9 Restrictive lung disease J98.4 MINI (obstructive sleep apnea) G47.33 History of DVT (deep vein thrombosis) Z86.718 Chronic anticoagulation Z79.01 Obesity (BMI 30-39.9) E66.9
[2020-10-04 18:45] LABS: Potassium, Radom Urine 43 mmol/L; Urine Creatinine 281 mg/dL (39-259); Urine Random Chloride 21 mmol/L; Urine Random Sodium 27 mmol/L
[2020-10-04 18:51] LABS: NT Pro B Type Natriuretic Pept 25 pg/mL (0-125); Procalcitonin 0.21 ng/mL (0-0.5); Thyroid Stimulating Hormone 2.73 uIU/mL (0.27-4.20)
[2020-10-04] MEDS: acetaminophen 325 mg Tablet 650 MG PO (18:51)
[2020-10-04 19:02] LABS: Iron 19 ug/dL (59-158); Percent Saturation 8.3 % (20-50); Total Iron Binding Capacity 227 mcg/dl; Unsaturated Iron Binding 208 ug/dL (112-347)
[2020-10-04 20:06] LABS: C Reactive Protein 31.3 mg/L (0.0-4.9); Creatine Phosphokinase 197 U/L (39-308); Lactate Dehydrogenase 314 U/L (135-225); Magnesium 1.5 mg/dL (1.7-2.3)
[2020-10-04 20:10] LABS: D Dimer 0.54 ug/mIFEU (0-0.59)
[2020-10-04 20:21] LABS: Ferritin 1412 ng/mL (30-400)
[2020-10-04] MEDS: sodium chloride 0.9% 1,000 ML 125 ML IV (20:46)
[2020-10-04 20:47] LABS: Fibrinogen 507 mg/dL (174-498)
[2020-10-04] MEDS: ascorbic acid 500 mg Tablet PO (22:45)
[2020-10-04] MEDS: benzonatate 100 mg Capsule PO (22:45)
[2020-10-04] MEDS: famotidine 20 mg/2 mL INJ IVP (22:45)
[2020-10-05] VITALS (13 sets, daily range): BP systolic 94–124; BP diastolic 44–72; PULSE 68–78; RESP 18–23; TEMP 36.6–37; O2SAT 90–95
--- NOTE | 2020-10-05 02:55 | PC.NURSE ---
Late Entry Found patient in room @ 2030. Did not receive report from previous nurse. patient is A & O. C/O of shortness of breath, applied 2L O2 via NC. Patient states he is supposed to wear a C-Pap at night but hasn't worn it in several months and states he does not need one here. Has no C/O of pain or voices other needs at this time.
[2020-10-05] MEDS: sodium chloride 0.9% 1,000 ML 125 ML IV (04:23)
[2020-10-05 05:28] LABS: Basophils % 0.2 %; Hematocrit 42.6 % (42.0-52.0); Lymphocytes # 1.6 10^3/uL (0.8-4.8); Lymphocytes % 33.1 %; Mean Corpuscular HGB Conc 30.5 g/dL (30.0-36.0); Mean Corpuscular Hemoglobin 30.6 pg (28.0-34.0); Mean Corpuscular Volume 100.2 fL (80-94); Mean Platelet Volume 14.3 fL (7.4-10.4); Monocytes # 0.6 10^3/uL (0.2-0.9); Monocytes % 12.4 %; Neutrophils # 2.59 10^3/uL (1.8-7.7); Neutrophils % 53.7 %; Nucleated Red Blood Cells % 0 %; Platelet Count 74 10^3/cmm (130-400); Red Blood Count 4.25 10^6/uL (4.1-5.3); Red Cell Distribution Width 14.7 % (12.1-15.1); White Blood Count 4.8 10^3/uL (4.0-10.0)
[2020-10-05 05:41] LABS: Estmated Average Glucose 131; Hemoglobin A1C 6.2 % (4.0-6.0)
--- NOTE | 2020-10-05 06:00 | XR_ITS ---
WS: [id number] Portable AP upright chest, 10/05/2020 Clinical Data: covid Comparison: Portable chest, 10/04/2020 Findings: No nodules, masses or effusions are seen. The heart is normal. The pulmonary vascularity is not increased. No pneumonia or pneumothorax is seen. The diaphragms are flattened. The aortic arch a nd descending aorta show tortuosity. Monitor leads are on the chest wall. There is a dextroscoliosis of the thoracic spine. XR/XR chest 1V portable [id number] Impression: Atherosclerosis and hyperinflation.
[2020-10-05 06:01] LABS: Alanine Aminotransferase 30 U/L (0-41); Albumin Level 3.1 g/dL (3.5-5.2); Alkaline Phosphatase 49 IU/L (40-130); Anion Gap 14.1 (5-19); Aspartate Amino Transferase 33 U/L (0-40); Blood Urea Nitrogen 39 mg/dL (8-23); C Reactive Protein 35.1 mg/L (0.0-4.9); Calcium 6.9 mg/dL (8.5-10.5); Carbon Dioxide 18 mmol/L (22-29); Chloride 104 mmol/L (98-107); Chol HDL Ratio 2.96 mg/dL (1.0-5.00); Cholesterol 71 mg/dL (0-200); Creatine Phosphokinase 318 U/L (39-308); Globulin 2.7 g/dL (1.3-4.6); Glomerular Filtration Rate 28.3 mL/min (90-130); Glucose 106 mg/dL (65-115); HDL Cholesterol 24 mg/dL (60-100); LDL Cholesterol Calculated 27 mg/dL (50-129); Magnesium 1.5 mg/dL (1.7-2.3); NT Pro B Type Natriuretic Pept 21 pg/mL (0-125); Osmolality Calculated 284 mOsm/kg (285-295); Potassium 4.1 mmol/L (3.5-5.1); Sodium 132 mmol/L (136-145); Total Bilirubin 0.3 mg/dL (0.15-1.2); Total Protein 5.8 g/dL (6.6-8.7); Triglycerides 98 mg/dL (0-150); VLDL Cholestrol Calculation 20 mg/dL (0-30)
[2020-10-05 06:13] LABS: Ferritin 1367 ng/mL (30-400)
[2020-10-05 06:33] LABS: Erythrocyte Sedimentation Rate 22 mm/hr (0-10)
[2020-10-05] MEDS: atorvastatin 40 mg Tablet PO (08:11)
[2020-10-05] MEDS: ascorbic acid 500 mg Tablet PO ×2 (08:11→17:33)
[2020-10-05] MEDS: docusate sodium 100 mg Capsule PO (08:11)
[2020-10-05] MEDS: montelukast sodium 10 mg Tablet PO (08:11)
[2020-10-05] MEDS: tamsulosin 0.4 mg Capsule PO (08:11)
[2020-10-05] MEDS: metoprolol tartrate 25 mg Tablet 12.5 MG PO ×2 (08:11→17:33)
[2020-10-05] MEDS: benzonatate 100 mg Capsule PO ×3 (08:11→22:45)
[2020-10-05] MEDS: ferrous gluconate 324 mg Tablet PO ×2 (08:11→17:33)
[2020-10-05] MEDS: zinc gluconate 50 mg Tablet PO (08:11)
[2020-10-05] MEDS: apixaban 5 mg Tablet PO ×2 (08:11→17:33)
[2020-10-05] MEDS: famotidine 20 mg/2 mL INJ IVP ×2 (08:15→22:45)
[2020-10-05] MEDS: dexamethasone 4 mg/mL INJ 6 MG IVP (09:50)
[2020-10-05] MEDS: remdesivir 200 MG in sodium chloride 0.9% (100 ml) 100 ML 100 MG IV (10:02)
[2020-10-05 10:57] LABS: Urine Random Sodium 42 mmol/L
[2020-10-05 11:58] LABS: Glucose Point of Care 112 mg/dL (70-110)
--- NOTE | 2020-10-05 15:11 | P.PN_ITS ---
Subjective Subjective: Interval history: Today morning examination patient lying comfortably in bed. Has just had a bowel movement. Overnight he was placed on 2 L nasal cannula saturating 92%. Denies any nausea, burning, headache. States he is feeling weak and tired. No further nausea or vomiting. Vitals/I&O/Wt Last Vital Signs Temp 97.9 F 10/05/20 12:22 Pulse 72 10/05/20 12:22 Resp 23 H 10/05/20 12:22 BP 110/56 10/05/20 12:22 Pulse Ox 92 10/05/20 12:22 10/05/20 10/05/20 10/05/20 06:59 14:59 22:59 Intake Total 952.083 / 2012.083 1412 / 1412 Output Total 400 / 600 550 / 550 Balance 552.083 / 1412.083 862 / 862 Weight last 48 hrs Weight 142.156 kg Weight 127.006 kg Physical Exam Narrative: EXAM NARRATIVE: General: No acute distress, AO x3, morbidly obese, on 2 L saturating 92%. HEENT: PERRLA, pupils bilaterally equal and reactive Chest: Bronchial breath sounds bilaterally, diffuse rhonchi all over the lung hunter, equal good air entry bilaterally CVS: S1-S2 regular, no murmurs, no tachycardia, no gallops, no rubs Abdomen: Soft, nontender, no organomegaly, bowel sounds present Neuro: No focal deficits, no facial deformity, AO x3, power 5/5 in all limbs Data : 10/05/20 04:41 10/05/20 04:41 Micro: Microbiology 10/04/20 19:00 MRSA Culture - Final Nose 10/04/20 19:35 Blood Culture - Preliminary Blood SPECIMEN COLLECTED 10/04/20 19:33 Blood Culture - Preliminary Blood SPECIMEN COLLECTED A&P Assessment and plan (1) COVID-19: Status: Acute (2) CARLEY (acute kidney injury): Likely related to dehydration from GI losses. Status: Acute (3) Restrictive lung disease: Status: Acute (4) MINI (obstructive sleep apnea): Status: Acute (5) History of DVT (deep vein thrombosis): Status: Acute (6) Chronic anticoagulation: Status: Acute (7) Obesity (BMI 30-39.9): Status: Acute Additional A&P Information Acute kidney injury: Mildly better today. Most likely secondary dehydration versus possible sepsis from COVID-19. Fena-0.3%, consistent with prerenal. CT abdomen ruled out obstructive nephropathy. Strict input output charting, daily weights. Normal saline at 75 cc/h. No signs of metabolic acidosis or electrolyte abnormality. Medical reconciliation done for nephrotoxic drugs. Hold off on home dose of lisinopril for now. Monitor BMP daily. COVID-19 pneumonia: Overnight put on supplemental oxygen. Not sure if this is new. Most likely patient also requires oxygen as an outpatient given severe COPD, restrictive lung disease. As inflammatory markers are mildly elevated we will start patient on dexamethasone and remdesivir. Remdesivir to finish 3 to 5-day course depending on inflammatory markers. Dexamethasone 6 mg IV daily. Monitor inflammatory markers including LDH, ferritin, ESR, CRP daily. Advair, Spiriva. Vitamin C, zinc. Tessalon Perles. Incentive spirometry. Continue home dose of Eliquis 5 mg twice daily. If patient symptomatically markers are trending high will give a dose of Actemra. Hypertension: Goal blood pressure less than 140/90 mmHg with MAP over 65. Hold off on starting antihypertensives for now as blood pressure is soft. IV fluids as above. We will continue to monitor. History of restrictive lung disease/COPD: Continue Advair, Spiriva as above. History of DVT: Continue home dose of Eliquis. BPH: Continue home dose of Flomax. Full code. Cardiac diet. Eliquis was also started for DVT prophylaxis. Attestations Medical Necessity Statement*: Requires further hospitalization for management of acute kidney injury in setting of COVID-19 pneumonia, restrictive lung disease Time Spent in Patient Care: Greater than 35 minutes (>than 50% of time spent in counselling and/or direct pt care on unit) . Coding Level of Care Code Acute Pharmacy Technician Infusion for [facility] Fwd Diagnoses COVID-19 U07.1 CARLEY (acute kidney injury) N17.9 Restrictive lung disease J98.4 MINI (obstructive sleep apnea) G47.33 History of DVT (deep vein thrombosis) Z86.718 Chronic anticoagulation Z79.01 Obesity (BMI 30-39.9) E66.9
--- NOTE | 2020-10-05 16:11 | PC.NURSE ---
Pt refused proctor catheter placement, pt states I have no issues urinating and I know I'm not retaining so I don't need that. Physician notified and patient educated on use of urinal for accurate Intake and Output.
[2020-10-05 16:59] LABS: Glucose Point of Care 160 mg/dL (70-110)
--- NOTE | 2020-10-05 19:52 | PC.NURSE ---
Bedside report received from Kimberlyn CALVO. Patient is A & O, No C/O of pain or other needs at this time. Patient is continuing to refuse cath insertion.
[2020-10-05 21:01] LABS: Glucose Point of Care 139 mg/dL (70-110)
[2020-10-05] MEDS: sodium chloride 0.9% 1,000 ML 100 ML IV (22:45)
[2020-10-06] VITALS (12 sets, daily range): BP systolic 114–123; BP diastolic 60–78; PULSE 62–77; RESP 16–25; TEMP 36.4–37.1; O2SAT 90–94
[2020-10-06] MEDS: remdesivir 100 MG in sodium chloride 0.9% (100 ml) 100 ML IV (05:26)
[2020-10-06 06:01] LABS: Basophils % 0.3 %; Hematocrit 42.4 % (42.0-52.0); Hemoglobin 13.3 g/dL (11.7-16.6); Lymphocytes # 0.7 10^3/uL (0.8-4.8); Lymphocytes % 20.4 %; Mean Corpuscular HGB Conc 31.4 g/dL (30.0-36.0); Mean Corpuscular Hemoglobin 30.2 pg (28.0-34.0); Mean Corpuscular Volume 96.4 fL (80-94); Mean Platelet Volume 14.5 fL (7.4-10.4); Monocytes # 0.6 10^3/uL (0.2-0.9); Monocytes % 15.4 %; Neutrophils # 2.25 10^3/uL (1.8-7.7); Neutrophils % 63.1 %; Nucleated Red Blood Cells % 0 %; Platelet Count 84 10^3/cmm (130-400); Red Cell Distribution Width 14.4 % (12.1-15.1); White Blood Count 3.6 10^3/uL (4.0-10.0)
[2020-10-06 06:21] LABS: Alanine Aminotransferase 31 U/L (0-41); Alkaline Phosphatase 49 IU/L (40-130); Anion Gap 16.8 (5-19); Aspartate Amino Transferase 43 U/L (0-40); Blood Urea Nitrogen 31 mg/dL (8-23); C Reactive Protein 52.1 mg/L (0.0-4.9); Calcium 7.1 mg/dL (8.5-10.5); Carbon Dioxide 17 mmol/L (22-29); Chloride 107 mmol/L (98-107); Globulin 3.2 g/dL (1.3-4.6); Glomerular Filtration Rate 40.2 mL/min (90-130); Glucose 139 mg/dL (65-115); NT Pro B Type Natriuretic Pept 533 pg/mL (0-125); Osmolality Calculated 291 mOsm/kg (285-295); Potassium 4.8 mmol/L (3.5-5.1); Sodium 136 mmol/L (136-145); Total Bilirubin 0.3 mg/dL (0.15-1.2); Total Protein 6.2 g/dL (6.6-8.7)
[2020-10-06 06:22] LABS: Creatine Phosphokinase 854 U/L (39-308)
[2020-10-06 07:16] LABS: Ferritin 1519 ng/mL (30-400)
[2020-10-06 07:22] LABS: Erythrocyte Sedimentation Rate 24 mm/hr (0-10)
[2020-10-06 07:46] LABS: Glucose Point of Care 128 mg/dL (70-110)
[2020-10-06] MEDS: ascorbic acid 500 mg Tablet PO ×2 (09:26→18:02)
[2020-10-06] MEDS: zinc gluconate 50 mg Tablet PO (09:26)
[2020-10-06] MEDS: ferrous gluconate 324 mg Tablet PO ×2 (09:26→18:02)
[2020-10-06] MEDS: atorvastatin 40 mg Tablet PO (09:26)
[2020-10-06] MEDS: montelukast sodium 10 mg Tablet PO (09:26)
[2020-10-06] MEDS: tamsulosin 0.4 mg Capsule PO (09:26)
[2020-10-06] MEDS: apixaban 5 mg Tablet PO ×2 (09:26→18:02)
[2020-10-06] MEDS: metoprolol tartrate 25 mg Tablet 12.5 MG PO ×2 (09:26→18:02)
[2020-10-06] MEDS: benzonatate 100 mg Capsule PO ×3 (09:26→22:14)
[2020-10-06] MEDS: dexamethasone 4 mg/mL INJ 6 MG IVP (09:27)
[2020-10-06] MEDS: famotidine 20 mg/2 mL INJ IVP ×2 (09:27→22:13)
[2020-10-06] MEDS: sodium chloride 0.9% 1,000 ML 100 ML IV (09:35)
[2020-10-06 11:35] LABS: Glucose Point of Care 197 mg/dL (70-110)
--- NOTE | 2020-10-06 14:05 | PM.PN ---
Subjective Subjective: Interval history: No acute events overnight. Today morning examination patient seen sitting in bed. He saturating 92% on 2 L nasal cannula. Denies any nausea, vomiting, headache. States he is feeling better today as compared to yesterday. States he is more energetic. Denies any chest pain or difficulty in breathing currently. Vitals/I&O/Wt Last Vital Signs Temp 97.8 F 10/06/20 07:46 Pulse 71 10/06/20 12:00 Resp 20 H 10/06/20 12:00 BP 118/72 10/06/20 12:00 Pulse Ox 92 10/06/20 12:00 10/05/20 10/06/20 10/06/20 22:59 06:59 14:59 Intake Total 1000 / 2412 400 / 2812 1357.333 / 1357.333 Output Total 500 / 1050 775 / 1825 1400 / 1400 Balance 500 / 1362 -375 / 987 -42.667 / -42.667 Weight last 48 hrs Weight 141.067 kg Weight 142.156 kg Physical Exam Narrative: EXAM NARRATIVE: General: No acute distress, AO x3, morbidly obese, on 2 L saturating 92%. HEENT: PERRLA, pupils bilaterally equal and reactive Chest: Bronchial breath sounds bilaterally, diffuse rhonchi all over the lung hunter, equal good air entry bilaterally CVS: S1-S2 regular, no murmurs, no tachycardia, no gallops, no rubs Abdomen: Soft, nontender, no organomegaly, bowel sounds present Neuro: No focal deficits, no facial deformity, AO x3, power 5/5 in all limbs Data : 10/06/20 04:37 10/06/20 04:37 Micro: Microbiology 10/04/20 19:35 Blood Culture - Preliminary Blood NEGATIVE TO DATE 10/04/20 19:33 Blood Culture - Preliminary Blood NEGATIVE TO DATE 10/04/20 19:00 MRSA Culture - Final Nose A&P Assessment and plan (1) COVID-19: Status: Acute (2) CARLEY (acute kidney injury): Likely related to dehydration from GI losses. Status: Acute (3) Restrictive lung disease: Status: Acute (4) MINI (obstructive sleep apnea): Status: Acute (5) History of DVT (deep vein thrombosis): Status: Acute (6) Chronic anticoagulation: Status: Acute (7) Obesity (BMI 30-39.9): Status: Acute (8) Acute respiratory failure with hypoxia: Status: Acute Additional A&P Information Acute kidney injury: Resolved. Creatinine back to baseline of 1.7. BUN mildly elevated. Most likely secondary dehydration versus possible sepsis from COVID-19. Fena-0.3%, consistent with prerenal. CT abdomen ruled out obstructive nephropathy. Strict input output charting, daily weights. No metabolic acidosis or electrolyte abnormality. Continue normal saline at 50 cc/h. Medical reconciliation done for nephrotoxic drugs. Hold off on home dose of lisinopril for now. Monitor BMP daily. COVID-19 pneumonia: Overnight put on supplemental oxygen. Not sure if this is new. Most likely patient also requires oxygen as an outpatient given severe COPD, restrictive lung disease. As inflammatory markers are mildly elevated we will start patient on dexamethasone and remdesivir. Remdesivir to finish 3 to 5-day course depending on inflammatory markers. Dexamethasone 6 mg IV daily. Monitor inflammatory markers including LDH, ferritin, ESR, CRP daily. Currently inflammatory markers have remained stable. CPK mildly elevated today. Advair, Spiriva. Vitamin C, zinc. Tessalon Perles. Incentive spirometry. Continue home dose of Eliquis 5 mg twice daily. If patient symptomatically markers are trending high will give a dose of Actemra. Hypertension: Goal blood pressure less than 140/90 mmHg with MAP over 65. Hold off on starting antihypertensives for now as blood pressure is soft. IV fluids as above. We will continue to monitor. History of restrictive lung disease/COPD: Continue Advair, Spiriva as above. History of DVT: Continue home dose of Eliquis. BPH: Continue home dose of Flomax. Full code. Cardiac diet. Eliquis was also started for DVT prophylaxis. Attestations Medical Necessity Statement*: Requires further hospitalization for management of acute kidney injury, COVID-19 pneumonia, acute on chronic hypoxia Time Spent in Patient Care: Greater than 35 minutes (>than 50% of time spent in counselling and/or direct pt care on unit). Coding Level of Care Code Acute Straight Knife Machine Cutter for [facility] Fwd Diagnoses COVID-19 U07.1 CARLEY (acute kidney injury) N17.9 Restrictive lung disease J98.4 MINI (obstructive sleep apnea) G47.33 History of DVT (deep vein thrombosis) Z86.718 Chronic anticoagulation Z79.01 Obesity (BMI 30-39.9) E66.9 Acute respiratory failure with hypoxia J96.01
[2020-10-06 17:09] LABS: Glucose Point of Care 148 mg/dL (70-110)
[2020-10-06 20:21] LABS: Glucose Point of Care 165 mg/dL (70-110)
[2020-10-06] MEDS: ALPRAZolam 0.5 mg Tablet 0.25 MG PO (22:14)
[2020-10-07] VITALS (12 sets, daily range): BP systolic 106–131; BP diastolic 61–76; PULSE 56–68; RESP 16–21; TEMP 36.6–37; O2SAT 91–94
[2020-10-07] MEDS: remdesivir 100 MG in sodium chloride 0.9% (100 ml) 100 ML IV (05:22)
[2020-10-07] MEDS: sodium chloride 0.9% 1,000 ML 50 ML IV (05:23)
--- NOTE | 2020-10-07 06:00 | XRR_ITS ---
PROCEDURE INFORMATION: Exam: XR Chest Exam date and time: 10/07/2020 6:00 AM Age: 70 years old Clinical indication: Cough; Additional info: Covid TECHNIQUE: Imaging protocol: XR of the chest. Views: 1 view. COMPARISON: CR XR chest 1V portable [id number] 10/05/2020 6:37 AM FINDINGS: Lungs: Stable bilateral interstitial pulmonary infiltrates are present which are consistent with interstitial viral pneumonia. Pleural spaces: Unremarkable. No pleural effusion. No pneumothorax. Heart/Mediastinum: Unremarkable. No cardiomegaly. Bones/joints: Unremarkable. XR/XR chest 1V portable [id number] IMPRESSION: Stable interstitial pulmonary infiltrates.
[2020-10-07 08:03] LABS: Glucose Point of Care 187 mg/dL (70-110)
[2020-10-07] MEDS: metoprolol tartrate 25 mg Tablet 12.5 MG PO ×2 (09:46→17:02)
[2020-10-07] MEDS: ferrous gluconate 324 mg Tablet PO ×2 (09:46→17:01)
[2020-10-07] MEDS: atorvastatin 40 mg Tablet PO (09:47)
[2020-10-07] MEDS: tamsulosin 0.4 mg Capsule PO (09:47)
[2020-10-07] MEDS: dexamethasone 4 mg/mL INJ 6 MG IVP (09:47)
[2020-10-07] MEDS: benzonatate 100 mg Capsule PO ×3 (09:47→21:45)
[2020-10-07] MEDS: montelukast sodium 10 mg Tablet PO (09:47)
[2020-10-07] MEDS: apixaban 5 mg Tablet PO ×2 (09:47→17:02)
[2020-10-07] MEDS: zinc gluconate 50 mg Tablet PO (09:47)
[2020-10-07] MEDS: ascorbic acid 500 mg Tablet PO ×2 (09:47→17:01)
[2020-10-07] MEDS: famotidine 20 mg/2 mL INJ IVP ×2 (09:47→21:45)
[2020-10-07 11:09] LABS: Basophils % 0.2 %; Hematocrit 42.6 % (42.0-52.0); Hemoglobin 13.8 g/dL (11.7-16.6); Lymphocytes # 0.9 10^3/uL (0.8-4.8); Lymphocytes % 14.2 %; Mean Corpuscular HGB Conc 32.4 g/dL (30.0-36.0); Mean Corpuscular Hemoglobin 30.5 pg (28.0-34.0); Mean Platelet Volume 14.5 fL (7.4-10.4); Monocytes # 0.7 10^3/uL (0.2-0.9); Monocytes % 10.6 %; Neutrophils # 4.56 10^3/uL (1.8-7.7); Neutrophils % 74.2 %; Nucleated Red Blood Cells % 0 %; Platelet Count 101 10^3/cmm (130-400); Red Blood Count 4.53 10^6/uL (4.1-5.3); Red Cell Distribution Width 14.5 % (12.1-15.1); White Blood Count 6.1 10^3/uL (4.0-10.0)
[2020-10-07 11:36] LABS: Alanine Aminotransferase 34 U/L (0-41); Albumin Level 3.4 g/dL (3.5-5.2); Alkaline Phosphatase 49 IU/L (40-130); Anion Gap 16.4 (5-19); Aspartate Amino Transferase 44 U/L (0-40); Blood Urea Nitrogen 23 mg/dL (8-23); C Reactive Protein 23.3 mg/L (0.0-4.9); Calcium 7.8 mg/dL (8.5-10.5); Carbon Dioxide 18 mmol/L (22-29); Chloride 106 mmol/L (98-107); Globulin 3.1 g/dL (1.3-4.6); Glucose 145 mg/dL (65-115); NT Pro B Type Natriuretic Pept 689 pg/mL (0-125); Osmolality Calculated 288 mOsm/kg (285-295); Potassium 4.4 mmol/L (3.5-5.1); Sodium 136 mmol/L (136-145); Total Bilirubin 0.2 mg/dL (0.15-1.2); Total Protein 6.5 g/dL (6.6-8.7)
[2020-10-07 11:50] LABS: Glucose Point of Care 154 mg/dL (70-110)
[2020-10-07 12:03] LABS: Ferritin 1401 ng/mL (30-400)
[2020-10-07 12:04] LABS: Creatine Phosphokinase 1380 U/L (39-308)
--- NOTE | 2020-10-07 12:24 | PC.SOCIAL ---
Pg 2 IMM Explained to pt Pg 2 IMM. No questions voiced. Provided pt a copy. Initialed, dated, & timed a copy & placed in chart.
[2020-10-07] MEDS: sodium chloride 0.9% 500 ML 999 ML IV (12:25)
--- NOTE | 2020-10-07 12:35 | P.PN_ITS ---
Subjective Subjective: Interval history: No acute events overnight. On examination sitting up in chair today. States he is feeling a lot better. States breathing at his baseline. Currently on 2 L nasal cannula saturating 92%. Appetite is appropriate. Work with incentive spirometry and flutter valve. Denies any nausea, vomiting, headache. Denies myalgias. Vitals/I&O/Wt Last Vital Signs Temp 98.0 F 10/07/20 11:11 Pulse 60 10/07/20 11:11 Resp 18 10/07/20 11:11 BP 123/68 10/07/20 11:11 Pulse Ox 92 10/07/20 11:11 10/06/20 10/07/20 10/07/20 22:59 06:59 14:59 Intake Total 236 / 2172.466 9656.333 / 2681.666 480 / 480 Output Total 725 / 2125 450 / 2575 Balance -489 / -531.667 638.333 / 106.666 480 / 480 Weight last 48 hrs Weight 137.983 kg Weight 141.067 kg Physical Exam Narrative: EXAM NARRATIVE: General: No acute distress, AO x3, morbidly obese, on 2 L saturating 92%. HEENT: PERRLA, pupils bilaterally equal and reactive Chest: Bronchial breath sounds bilaterally, diffuse rhonchi all over the lung hunter, equal good air entry bilaterally CVS: S1-S2 regular, no murmurs, no tachycardia, no gallops, no rubs Abdomen: Soft, nontender, no organomegaly, bowel sounds present Neuro: No focal deficits, no facial deformity, AO x3, power 5/5 in all limbs Data : 10/06/20 04:37 10/07/20 10:04 A&P Assessment and plan (1) COVID-19: Status: Acute (2) CARLEY (acute kidney injury): Likely related to dehydration from GI losses. Status: Acute (3) Restrictive lung disease: Status: Acute (4) MINI (obstructive sleep apnea): Status: Acute (5) History of DVT (deep vein thrombosis): Status: Acute (6) Chronic anticoagulation: Status: Acute (7) Obesity (BMI 30-39.9): Status: Acute (8) Acute respiratory failure with hypoxia: Status: Acute Additional A&P Information Acute kidney injury: Resolved. Most likely secondary dehydration versus possible sepsis from COVID-19. Fena-0.3%, consistent with prerenal. CT abdomen ruled out obstructive nephropathy. Strict input output charting, daily weights. No metabolic acidosis or electrolyte abnormality. Continue normal saline at 50 cc/h. Medical reconciliation done for nephrotoxic drugs. Hold off on home dose of lisinopril for now. Monitor BMP daily. Rhabdomyolysis: Most likely secondary to COVID-19 pneumonia. Continue with IV hydration as above. Will monitor for fluid overload. COVID-19 pneumonia: Overnight put on supplemental oxygen. Not sure if this is new. Most likely patient also requires oxygen as an outpatient given severe COPD, restrictive lung disease. As inflammatory markers are mildly elevated we will start patient on dexamethasone and remdesivir. Remdesivir to finish 3 to 5-day course depending on inflammatory markers. Dexamethasone 6 mg IV daily. Monitor inflammatory markers including LDH, ferritin, ESR, CRP daily. Currently inflammatory markers have remained stable. CPK mildly elevated today. Advair, Spiriva. Vitamin C, zinc. Tessalon Perles. Incentive spirometry. Continue home dose of Eliquis 5 mg twice daily. If patient symptomatically markers are trending high will give a dose of Actemra. Hypertension: Goal blood pressure less than 140/90 mmHg with MAP over 65. Hold off on starting antihypertensives for now as blood pressure is soft. IV fl uids as above. We will continue to monitor. History of restrictive lung disease/COPD: Continue Advair, Spiriva as above. History of DVT: Continue home dose of Eliquis. BPH: Continue home dose of Flomax. Full code. Cardiac diet. Eliquis was also started for DVT prophylaxis. Attestations Medical Necessity Statement*: Requires further hospitalization for management of resolving CARLEY, COVID-19 pneumonia in setting of baseline restrictive lung disease Time Spent in Patient Care: Greater than 35 minutes (>than 50% of time spent in counselling and/or direct pt care on unit) . Coding Level of Care Code Acute Sales Office Administrator for [facility] Diagnoses COVID-19 U07.1 CARLEY (acute kidney injury) N17.9 Restrictive lung disease J98.4 MINI (obstructive sleep apnea) G47.33 History of DVT (deep vein thrombosis) Z86.718 Chronic anticoagulation Z79.01 Obesity (BMI 30-39.9) E66.9 Acute respiratory failure with hypoxia J96.01
[2020-10-07 14:04] LABS: Erythrocyte Sedimentation Rate 21 mm/hr (0-10)
[2020-10-07 15:13] LABS: Slide Review Slide Review Perform
[2020-10-07 16:01] LABS: Glucose Point of Care 175 mg/dL (70-110)
[2020-10-07 20:13] LABS: Glucose Point of Care 219 mg/dL (70-110)
[2020-10-08] VITALS (7 sets, daily range): BP systolic 137–139; BP diastolic 77–84; PULSE 52–68; RESP 16–28; TEMP 36.8; O2SAT 88–95
--- NOTE | 2020-10-08 01:53 | PC.NURSE ---
Bedside report received from Reginaldo RN. patient is A & O, no C/O of pain or other needs at this time.
[2020-10-08] MEDS: sodium chloride 0.9% 1,000 ML 50 ML IV (02:28)
[2020-10-08] MEDS: insulin glargine 100 units/1 mL 10 UNIT SUBCUT (02:28)
[2020-10-08] MEDS: remdesivir 100 MG in sodium chloride 0.9% (100 ml) 100 ML IV (05:27)
[2020-10-08 06:35] LABS: Glucose Point of Care 173 mg/dL (70-110)
[2020-10-08 07:28] LABS: Hemoglobin 13.5 g/dL (11.7-16.6); Lymphocytes # 0.8 10^3/uL (0.8-4.8); Lymphocytes % 11.3 %; Mean Corpuscular HGB Conc 32.1 g/dL (30.0-36.0); Mean Corpuscular Hemoglobin 30.1 pg (28.0-34.0); Mean Corpuscular Volume 93.5 fL (80-94); Mean Platelet Volume 14.1 fL (7.4-10.4); Monocytes # 0.7 10^3/uL (0.2-0.9); Monocytes % 11.2 %; Neutrophils # 5.04 10^3/uL (1.8-7.7); Neutrophils % 76.3 %; Nucleated Red Blood Cells % 0 %; Platelet Count 106 10^3/cmm (130-400); Red Blood Count 4.49 10^6/uL (4.1-5.3); Red Cell Distribution Width 14.4 % (12.1-15.1); White Blood Count 6.6 10^3/uL (4.0-10.0)
[2020-10-08 08:07] LABS: Alanine Aminotransferase 36 U/L (0-41); Albumin Level 3.4 g/dL (3.5-5.2); Alkaline Phosphatase 47 IU/L (40-130); Anion Gap 15.3 (5-19); Aspartate Amino Transferase 41 U/L (0-40); Blood Urea Nitrogen 23 mg/dL (8-23); Calcium 7.7 mg/dL (8.5-10.5); Carbon Dioxide 20 mmol/L (22-29); Chloride 106 mmol/L (98-107); Globulin 2.7 g/dL (1.3-4.6); Glomerular Filtration Rate 66.4 mL/min (90-130); Glucose 151 mg/dL (65-115); Osmolality Calculated 291 mOsm/kg (285-295); Potassium 4.3 mmol/L (3.5-5.1); Sodium 137 mmol/L (136-145); Total Bilirubin 0.3 mg/dL (0.15-1.2); Total Protein 6.1 g/dL (6.6-8.7)
[2020-10-08] MEDS: benzonatate 100 mg Capsule PO (08:33)
[2020-10-08] MEDS: metoprolol tartrate 25 mg Tablet 12.5 MG PO (08:33)
[2020-10-08] MEDS: ascorbic acid 500 mg Tablet PO (08:33)
[2020-10-08] MEDS: acetaminophen 325 mg Tablet 650 MG PO (08:33)
[2020-10-08] MEDS: atorvastatin 40 mg Tablet PO (08:33)
[2020-10-08] MEDS: apixaban 5 mg Tablet PO (08:33)
[2020-10-08] MEDS: montelukast sodium 10 mg Tablet PO (08:33)
[2020-10-08] MEDS: tamsulosin 0.4 mg Capsule PO (08:33)
[2020-10-08] MEDS: zinc gluconate 50 mg Tablet PO (08:33)
[2020-10-08] MEDS: famotidine 20 mg/2 mL INJ IVP (08:34)
[2020-10-08] MEDS: dexamethasone 4 mg/mL INJ 6 MG IVP (08:34)
[2020-10-08 09:28] LABS: Erythrocyte Sedimentation Rate 16 mm/hr (0-10)
[2020-10-08 09:31] LABS: Slide Review Slide Review Perform
--- NOTE | 2020-10-08 11:29 | P.DS_ITS ---
Discharge Providers Date of Admission: 10/04/20 17:15 Date of Discharge: October 08, 2020 Attending Provider at Admission: Norberto Murdock MD Attending Provider at Discharge: Saeid Barraza Primary Care Provider: Kain Moran MD Diagnoses at Discharge Discharge Diagnosis (1) COVID-19: Status: Acute (2) CARLEY (acute kidney injury): Status: Acute (3) Restrictive lung disease: Status: Acute (4) MINI (obstructive sleep apnea): Status: Acute (5) History of DVT (deep vein thrombosis): Status: Acute (6) Chronic anticoagulation: Status: Acute (7) Obesity (BMI 30-39.9): Status: Acute (8) Acute respiratory failure with hypoxia: Status: Acute Reason for Visit Reason for Visit: LOW BP 80/60 Hospital Course Hospital Course Pleasant 70-year-old gentleman with history of emphysema, VTE, anticoagulation, CVA, MINI, monoclonal gammopathy, other comorbidities was admitted for assessment of management after presenting with hypotension, with acute kidney injury on presentation, creatinine up to 3.7, as well as COVID-19 positive on presentation. Received transient IV hydration, avoiding fluid overload due to COVID-19 severe pneumonia, hypoxia, which was treated with remdesivir, Decadron, supportive care, breathing treatments, oxygen support. Oxygen requirement has been coming down, today down to 2 L by nasal cannula. Subjectively he is feeling better, has been getting up and ambulating in his room. Feels ready to return home. Acute kidney injury has resolved during hospitalization with creatinine decreasing down to 1. For now lisinopril is held. Due to noted rhabdomyolysis, CK increase, statin currently is held as well. Please reassess respiratory function, blood pressure, renal function at follow-up visit. Consider resuming medications depending on condition. Hypotension has resolved. Blood pressures fluctuating but near goal. For now with lisinopril held metoprolol is continued at 12.5 mg twice daily. He is also on tamsulosin. He is noted to have prediabetes with A1c of 6.2%. Please follow-up with him and assist him with optimizing risk factors of cardiovascular disease including prediabetes, HTN, weight management. As today he is feeling much better oxygen requirement is significantly decreasing, he feels comfortable returning home. Home oxygen evaluation is obtained at discharge, and he will be continuing recovery at home. He will complete additional 1 dose of Decadron after discharge. He understands that remdesivir course is cut slightly short. He also as per discussion he is aware of fluctuating course of COVID-19 illness, and in case of worsening symptoms or any concerning symptoms as per detailed discussion he is going to seek medical attention without delay, with continued oxygen monitoring at home. Hopefully he should continue to wean off oxygen entirely. Please reassess his readiness to return to work. Physical Exam Const: COMMON NORMALS: no acute distress and patient oriented x3 OTHER: Awake, alert, sitting up in bed. Pleasant, conversant. In good spirits. Feels good about going home. HENMT: COMMON NORMALS: oropharynx normal Neck/C-Spine: COMMON NORMALS: no JVD Resp: COMMON NORMALS: normal respiratory effort and clear to auscultation bilaterally AUSCULTATION: clear to auscultation bilaterally Cardio: COMMON NORMALS: no JVD, regular rhythm, S1 normal heart sound present, S2 normal heart sound present and No murmurs present (Cardio) RHYTHM: regular rhythm HEART SOUNDS: S1 normal heart sound present and S2 normal heart sound present GI: COMMON NORMALS: Normal to inspection, nondistended, normoactive bowel sounds present, Soft to palpation and non-tender PALPATION: Yes Soft to palpation Extremity: COMMON NORMALS: no joint enlargement and no pedal edema Neuro: COMMON NORMALS: patient oriented x3 and moves all extremities Skin: COMMON NORMALS: no rashes or lesions noted GENERAL SKIN EXAM: no rashes or lesions noted Discharge Data Data Completed and Pending: Completed Studies During Hospitalization Category Date Time Status CT chest abd pel wo con Routine Cat Scan 10/04/20 18:12 Completed XR chest 1V katrina ble 16808 Q48H Exams 10/05/20 06:00 Completed XR chest 1V katrina ble 33411 Q48H Exams 10/07/20 06:00 Completed XR chest 1V katrina ble [id number] Stat Exams 10/04/20 08:43 Completed Pending at discharge Category Date Time Status XR chest 1V katrina ble [id number] Q48H Exams 10/09/20 06:00 Ordered Blood Culture Sta t Lab 10/04/20 19:35 Results C Reactive Protei n AM LABS Lab 10/08/20 04:00 Ordered C Reactive Protei n AM LABS Lab 10/09/20 04:00 Ordered C Reactive Protei n AM LABS Lab 10/10/20 04:00 Ordered Creatine Phosphok inase Routine Lab 10/08/20 11:15 Ordered Erythrocyte Sedim entation Rate AM L ABS Lab 10/09/20 04:00 Ordered Erythrocyte Sedim entation Rate AM L ABS Lab 10/10/20 04:00 Ordered NT Pro B Type Jenise riuretic Pept AM L ABS Lab 10/08/20 04:00 Ordered NT Pro B Type Jenise riuretic Pept AM L ABS Lab 10/09/20 04:00 Ordered NT Pro B Type Jenise riuretic Pept AM L ABS Lab 10/10/20 04:00 Ordered Sputum Culture an d Gram Stain Stat Lab 10/04/20 18:58 Uncollected Labs from last 24 hours 10/08/20 10/08/20 10/08/20 06:55 06:55 06:55 WBC 6.6 RBC 4.49 Hgb 13.5 Hct 42.0 MCV 93.5 MCH 30.1 MCHC 32.1 RDW 14.4 Plt Count 106 L MPV 14.1 H Neut % (Auto) 76.3 Lymph % (Auto) 11.3 Trimble % (Auto) 11.2 Eos % (Auto) 0.0 Baso % (Auto) 0.0 Neut # (Auto) 5.04 Lymph # (Auto) 0.8 Trimble # (Auto) 0.7 Eos # (Auto) 0.0 Baso # (Auto) 0.0 Nucleated RBC % (a uto) 0 Nucleated RBCs # 0.0 ESR 16 H Sodium 137 Potassium 4.3 Chloride 106 Carbon Dioxide 20 L Anion Gap 15.3 BUN 23 Creatinine 1.1 GFR Calculation 66.4 L Glucose 151 H POC Glucose Calculated Osmolal ity 291 Calcium 7.7 L Ferritin Total Bilirubin 0.3 AST 41 H ALT 36 Alkaline Phosphata se 47 Creatine Kinase C-Reactive Protein NT-Pro-B Natriuret Pep Total Protein 6.1 L Albumin 3.4 L Globulin 2.7 10/08/20 10/07/20 10/07/20 06:24 19:32 15:32 WBC RBC Hgb Hct MCV MCH MCHC RDW Plt Count MPV Neut % (Auto) Lymph % (Auto) Trimble % (Auto) Eos % (Auto) Baso % (Auto) Neut # (Auto) Lymph # (Auto) Trimble # (Auto) Eos # (Auto) Baso # (Auto) Nucleated RBC % (a uto) Nucleated RBCs # ESR Sodium Potassium Chloride Carbon Dioxide Anion Gap BUN Creatinine GFR Calculation Glucose POC Glucose 173 H 219 H 175 H Calculated Osmolal ity Calcium Ferritin Total Bilirubin AST ALT Alkaline Phosphata se Creatine Kinase C-Reactive Protein NT-Pro-B Natriuret Pep Total Protein Albumin Globulin 10/07/20 10/07/20 10/07/20 11:12 10:04 10:04 WBC 6.1 RBC 4.53 Hgb 13.8 Hct 42.6 MCV 94.0 MCH 30.5 MCHC 32.4 RDW 14.5 Plt Count 101 L MPV 14.5 H Neut % (Auto) 74.2 Lymph % (Auto) 14.2 Trimble % (Auto) 10.6 Eos % (Auto) 0.0 Baso % (Auto) 0.2 Neut # (Auto) 4.56 Lymph # (Auto) 0.9 Trimble # (Auto) 0.7 Eos # (Auto) 0.0 Baso # (Auto) 0.0 Nucleated RBC % (a uto) 0 Nucleated RBCs # 0.0 ESR Sodium 136 Potassium 4.4 Chloride 106 Carbon Dioxide 18 L Anion Gap 16.4 BUN 23 Creatinine 1.2 GFR Calculation 60.0 L Glucose 145 H POC Glucose 154 H Calculated Osmolal ity 288 Calcium 7.8 L Ferritin 1401 H Total Bilirubin 0.2 AST 44 H ALT 34 Alkaline Phosphata se 49 Creatine Kinase 1380 H* C-Reactive Protein 23.3 H NT-Pro-B Natriuret Pep 689 H Total Protein 6.5 L Albumin 3.4 L Globulin 3.1 10/07/20 10:04 WBC RBC Hgb Hct MCV MCH MCHC RDW Plt Count MPV Neut % (Auto) Lymph % (Auto) Trimble % (Auto) Eos % (Auto) Baso % (Auto) Neut # (Auto) Lymph # (Auto) Trimble # (Auto) Eos # (Auto) Baso # (Auto) Nucleated RBC % (a uto) Nucleated RBCs # ESR 21 H Sodium Potassium Chloride Carbon Dioxide Anion Gap BUN Creatinine GFR Calculation Glucose POC Glucose Calculated Osmolal ity Calcium Ferritin Total Bilirubin AST ALT Alkaline Phosphata se Creatine Kinase C-Reactive Protein NT-Pro-B Natriuret Pep Total Protein Albumin Globulin Vitals: Last Vital Signs Temp 98.2 F 07/19/21 04:00 Pulse 60 10/08/20 06:00 Resp 28 H 10/08/20 04:00 BP 139/77 10/08/20 04:00 Pulse Ox 95 10/08/20 04:00 Discharge Plan Discharge Patient Disposition: Home Condition: Stable Prescriptions: New dexamethasone [Decadron] 6 mg tablet 3 mg PO DAILY Qty: 1 RF: 0 benzonatate 100 mg Capsule 100 mg PO TID Qty: 30 RF: 3 Continued budesonide-formoterol [Symbicort] 160-4.5 mcg/actuation HFA aerosol inhaler 2 puff inhalation BID Qty: 10.2 RF: 3 cetirizine 10 mg tablet 10 mg PO DAILY RF: 0 montelukast 10 mg tablet 10 mg PO DAILY RF: 0 albuterol sulfate [ProAir HFA] 90 mcg/actuation HFA aerosol inhaler 2 puff inhalation Q4H PRN (Reason: Shortness Of Breath) RF: 0 Eliquis 5 mg tablet 5 mg PO BID RF: 0 alendronate 70 mg tablet 70 mg PO Q7D RF: 0 Tylenol Extra Strength 500 mg Tablet 1,500 mg PO PRN RF: 0 CoQ-10 100 mg Capsule 100 mg PO DAILY RF: 0 Vicks NyQuil Severe Cold-Flu 6.25-5-10-325 mg/15 mL Liquid 20 ml PO BEDTIME PRN (Reason: Cough) RF: 0 tamsulosin 0.4 mg capsule 0.4 mg PO DAILY RF: 0 Changed metoprolol tartrate 25 mg tablet 12.5 mg PO BID Qty: 0 RF: 0 Held lovastatin 20 mg tablet 20 mg PO DAILY RF: 0 Hold Instructions: Resume on 10/22/20. lisinopril 20 mg tablet 20 mg PO BID RF: 0 Hold Instructions: Resume on 10/22/20. lisinopril 2.5 mg tablet 2.5 mg PO QPM RF: 0 Hold Instructions: Resume on 10/22/20. atorvastatin 40 mg tablet 40 mg PO DAILY RF: 0 Hold Instructions: Resume on 10/22/20. Discharge Orders: Discharge Order (Routine); Ordered 10/08/20 Ordered By: Saeid Barraza Referrals: Kain Moran MD [Primary Care Provider] - 1 week Discharge Diet: Advance as tolerated and Diabetic Discharge Activity: Increase activity as tolerated and Oxygen as instructed Patient Instructions: Diabetes and Diet, Viral Pneumonia (GEN), Acute Kidney Injury (GEN), Using Oxygen at Home (GEN), Chronic Hypertension (GEN), Hypoxia (GEN) Activity Restrictions/Additional Instructions: Please discuss with your primary doctor regarding respiratory failure, severe COVID-19 infection, requiring oxygen. After you recover please consider vaccination to help avoid repeat infection. Please maintain isolation until at least 10/12, subsequently if you are having no further fever, muscle aches, headache, nausea vomiting or diarrhea, and improving cough, isolation may be discontinued. Please maintain oxygen saturation at least 90-92%. If dropping down to 88% or below, please increase oxygen flow. Your oxygen requirement may temporarily increase with activity but should gradually decrease with rest or increase in oxygen flow rate. If it does not improve, if oxygen saturation stay 88% or below, if you are persistently getting very fatigued, short of breath, or have chest pain or any other concerning symptoms please seek medical attention without delay. Please have your primary doctor follow-up your kidney function due to noted acute kidney injury while in the hospital which so far has improved. Please avoid any NSAIDs like ibuprofen, Aleve, etc. Please hold lisinopril for now as it may contribute to kidney injury until your kidney function can be reassessed by your doctor. Please hold cholesterol medications for now due to noted rhabdomyolysis, please discuss with your primary doctor as to when it may be safe to resume. When resumed please take only 1 cholesterol medication at a time (do not take both atorvastatin and lovastatin). Please continue follow-up with your lung specialist. Discussed with your primary doctor regarding prediabetes, your A1c is 6.2%. Please note sugars may be transiently worse than usual due to steroid treatment. Please maintain consistent carbohydrate diet. Discussed with your primary doctor regarding chronic management and prevention of progression to diabetes. Please have your primary doctor follow-up regarding your chronically low platelet levels. Discharge Attestations Time Spent in Discharge Care*: greater than 30 min Quality Metrics Clinical Quality Measures During this hospital stay, did patient experience: None Coding Level of Care Code Acute Chg FW DC note Exam Comprehensive Diagnoses COVID-19 U07.1 CARLEY (acute kidney injury) N17.9 Restrictive lung disease J98.4 MINI (obstructive sleep apnea) G47.33 History of DVT (deep vein thrombosis) Z86.718 Chronic anticoagulation Z79.01 Obesity (BMI 30-39.9) E66.9 Acute respiratory failure with hypoxia J96.01
[2020-10-08 12:06] LABS: Glucose Point of Care 126 mg/dL (70-110)
[2020-10-08 12:48] LABS: Creatine Phosphokinase 1167 U/L (39-308)
[2020-10-08 12:54] LABS: C Reactive Protein 13.8 mg/L (0.0-4.9); NT Pro B Type Natriuretic Pept 790 pg/mL (0-125)
--- NOTE | 2020-10-08 14:00 | PC.NURSE ---
meds to bed called
--- NOTE | 2020-10-08 16:13 | PC.NURSE ---
DISCHARGE TO HOME W/ OXYGEN AND MEDS ARE DELIVERED.
== END 2020-10-08 17:30 | disposition home or self-care (01) | DRG 177 ==
LOC: ER 17:04 → CSU 17:49
PROVIDERS: Physician Assistant; Admitting Provider Student in an Organized Health Care Education/Training Program; Emergency Provider Family Medicine; PCP Family Medicine; Visit Provider Internal Medicine
DX: U07.1 COVID-19 (principal); J12.82 Pneumonia due to coronavirus disease 2019; J96.01 Acute respiratory failure with hypoxia; N17.9 Acute kidney failure, unspecified; M62.82 Rhabdomyolysis; J43.9 Emphysema, unspecified; I10 Essential (primary) hypertension; E78.5 Hyperlipidemia, unspecified; Z87.891 Personal history of nicotine dependence; M88.9 Osteitis deformans of unspecified bone; E66.9 Obesity, unspecified; Z68.38 Body mass index [BMI] 38.0-38.9, adult; N40.1 Benign prostatic hyperplasia with lower urinary tract symptoms; Z86.73 Personal history of transient ischemic attack (TIA), and cerebral infarction without residual deficits; D47.2 Monoclonal gammopathy; G47.33 Obstructive sleep apnea (adult) (pediatric); Z86.718 Personal history of other venous thrombosis and embolism; E86.0 Dehydration; Z79.01 Long term (current) use of anticoagulants; Z79.51 Long term (current) use of inhaled steroids; R73.03 Prediabetes; I95.9 Hypotension, unspecified
CPT/HCPCS: 36415; 36416; 71045; 71250; 74176; 80053; 80061; 81001; 82436; 82550; 82570; 82728; 82962; 83036; 83540; 83550; 83615; 83690; 83735; 83880; 84100; 84133; 84145; 84300; 84443; 85025; 85378; 85384; 85651; 86140; 87040; 87426; 87641; 94640; 94664; 96365; 96372; 99285; J0610; J1100; J1815 ×2; J3475; J3490; J7030; J7040

== ENCOUNTER 2023-02-18 13:05 | Outpatient (CLI) | payer MEDICARE, SELFPAY ==
--- NOTE | 2023-02-18 13:19 | XR_ITS ---
WS: [id number] SCREENING DEXA SCAN [facility] CLINICAL INFORMATION: OSTEOPOROSIS COMPARISON: None. FINDINGS: The L1-L4 bone mineral density measures 1.454 g/cm2. This corresponds to a T score score of 1.9 and Z score of 1.8. Left femoral neck bone mineral density measures 1.312 g/cm2. This corresponds to a T score of 1.5 and Z score of 1.8. Right femoral neck bone mineral density measures 1.124 g/cm2. This corresponds to a T score 0.2of and Z score of 0.5. Mean femoral neck bone mineral density measures 1.218 g/cm2. This corresponds to a T score of 0.8 and Z score of 1.1. IMPRESSION: Normal bone mineralization. Patient's FRAX calculated 10 year probability for major osteoporotic fracture is 6.6% and osteoporoti c hip fracture is 1.5%.
--- NOTE | 2023-02-18 13:19 | CT_ITS ---
WS: [id number] LDCT LUNG CANCER SCREENING TECHNIQUE: Noncontrast CT of the chest with coronal and sagittal reformatted images. CLINICAL INFORMATION: HX OF TOBACCO USE COMPARISON: 2020 DLP: 187.19 mGy.cm DIvol: Mean CTDIvol: 4.40 (mGy) All CT scans at [facility] use at least one of these dose optimization techniques: automat ed exposure control; mA and/or kV adjustment per patient size (includes targeted exams where dose is matched to clinical indication); or iterative reconstruction. FINDINGS:Moderate to advanced chronic emphysematous changes. Bronchiectasis in the lung bases with calixto bsegmental atelectasis and fibrosis. Mild aortic calcification. No mediastinal or hilar lymphadenopathy. Coronary calcification. No axilla ry lymphadenopathy. Adrenal glands are normal. Small esophageal hiatal hernia. Partially visualized i ncreased attenuation lesion LEFT kidney likely hemorrhagic or proteinaceous cyst. Recommend further e valuation with ultrasound. Thoracic curve. Thoracic kyphosis. Moderate spondylitic changes thoracic spine. IMPRESSION:Partially visualized increased attenuation lesion LEFT kidney likely hemorrhagic or protei naceous cyst. Recommend further evaluation with ultrasound. CT/CT lung screening [id number] LUNG-RADS: 1S-Negative with Significant Findings FOLLOW UP: 12 Month: Continue annual screening with LDCT
== END 2023-02-18 13:06 | disposition home or self-care (01) ==
LOC: RAD 13:06
PROVIDERS: PCP Family Medicine; Visit Provider Family Medicine
DX: Z12.2 Encounter for screening for malignant neoplasm of respiratory organs (principal); Z87.891 Personal history of nicotine dependence; Z13.820 Encounter for screening for osteoporosis; M81.0 Age-related osteoporosis without current pathological fracture
CPT/HCPCS: 71271; 77080

== ENCOUNTER 2024-04-18 09:35 | Outpatient (CLI) | payer MEDICARE, SELFPAY | END 2024-04-18 09:36 | disposition home or self-care (01) | LOC: SLEEP 09:39 | PROVIDERS: PCP Family Medicine; Visit Provider Internal Medicine Pulmonary Disease | DX: G47.33 Obstructive sleep apnea (adult) (pediatric) (principal); G47.36 Sleep related hypoventilation in conditions classified elsewhere | CPT/HCPCS: G0399 ==

== ENCOUNTER → 2024-08-05 12:05 | Outpatient (BNVA) | payer MEDICARE, SELFPAY | PROVIDERS: PCP Family Medicine; Visit Provider Family Medicine | DX: N40.1 Benign prostatic hyperplasia with lower urinary tract symptoms (principal); N13.8 Other obstructive and reflux uropathy; I10 Essential (primary) hypertension; E66.9 Obesity, unspecified; M88.9 Osteitis deformans of unspecified bone; R06.00 Dyspnea, unspecified; R73.01 Impaired fasting glucose; Z12.5 Encounter for screening for malignant neoplasm of prostate | CPT/HCPCS: 80053; 80061; 83036; 84443; 85025; 87086; G0103 ==

== ENCOUNTER 2024-10-25 11:04 | Outpatient (CLI) | payer OTHER, MEDICAID, SELFPAY ==
--- NOTE | 2024-10-25 11:15 | CT_ITS ---
WS: [id number] LDCT LUNG CANCER SCREENING HISTORY: screening; ex smoker, quit 2010; 45pk yr TECHNIQUE: Axial imaging performed from the apices to 1 cm below the costophrenic angles. Coronal and sagittal reformats are submitted with axial MIP series. All CT scans at [facility] use at least one of these dose optimization techniques: automated exposure control; mA and/or kV adjustment per patient size (includes targeted exams where dose is matched to clinical indication); or iterative reconstruction. DLP: 160.00 mGy.cm DIvol: Mean CTDIvol: 3.70 (mGy) COMPARISON: 02/18/2023 Diagnostic quality: Satisfactory Lungs: Pulmonary hyperexpansion with centrilobular emphysema. Subsegmental atelectasis in the lower lung hunter. Additional bilateral lower lobe bronchiectasis. Greater bronchiectasis RIGHT lower lobe and it has increased since the prior study. No change in the 3 mm LEFT lower lobe pulmonary nodule, image 213 of series 6. Heart: Normal size heart with no pericardial effusion.. Other findings: Mild atherosclerosis aorta. Mild coronary artery calcification. Normal size pulmonary artery. No mediastinal or hilar adenopathy. No adrenal mass. Prior cholecystectomy. Reidentified but incompletely included is a hyperdense 14 mm nodule RIGHT kidney. Probably proteinaceous cyst. This can be further evaluated by ultrasound. CT/CT lung screening [id number] IMPRESSION: LUNG-RADS: 2S-Benign Appearance or Behavior with Significant Findings FOLLOW UP: 12 Month: Continue annual screening with LDCT OTHER FINDINGS (S MODIFIER): Development of bilateral lower lobe bronchiectasis since 02/18/2023.
== END 2024-10-25 11:05 | disposition home or self-care (01) ==
LOC: RAD 11:12
PROVIDERS: PCP Family Medicine; Visit Provider Family Medicine
DX: Z12.2 Encounter for screening for malignant neoplasm of respiratory organs (principal); J43.2 Centrilobular emphysema; I70.0 Atherosclerosis of aorta; J47.9 Bronchiectasis, uncomplicated; I25.10 Atherosclerotic heart disease of native coronary artery without angina pectoris; F17.211 Nicotine dependence, cigarettes, in remission
CPT/HCPCS: 71271

== ENCOUNTER 2024-11-08 06:55 | Outpatient (CLI) | payer OTHER, MEDICAID, SELFPAY ==
[2024-11-08 07:20] VITALS: PULSE 72; RESP 18; O2SAT 97
== END 2024-11-08 06:56 | disposition home or self-care (01) ==
LOC: RT 06:56
PROVIDERS: PCP Family Medicine; Visit Provider Family Medicine
DX: J47.9 Bronchiectasis, uncomplicated (principal); J43.9 Emphysema, unspecified
CPT/HCPCS: 94060; 94726; 94729; J7613

== ENCOUNTER 2024-11-24 09:17 | Outpatient (RCR) | payer OTHER, MEDICAID, SELFPAY | END 2024-12-20 23:59 | disposition home or self-care (01) | LOC: SPT 09:17 | PROVIDERS: PCP Family Medicine; Visit Provider Family Medicine | DX: M54.50 Low back pain, unspecified (principal); G89.29 Other chronic pain; R26.89 Other abnormalities of gait and mobility | CPT/HCPCS: 97161 ==

== ENCOUNTER → 2024-12-08 08:02 | Outpatient (BNVA) | payer OTHER, MEDICAID, SELFPAY | PROVIDERS: PCP Family Medicine; Visit Provider Internal Medicine | DX: J43.9 Emphysema, unspecified (principal); J47.9 Bronchiectasis, uncomplicated; G47.33 Obstructive sleep apnea (adult) (pediatric); Z99.89 Dependence on other enabling machines and devices; Z99.81 Dependence on supplemental oxygen; Z87.891 Personal history of nicotine dependence; J44.9 Chronic obstructive pulmonary disease, unspecified | CPT/HCPCS: 36415; 82103; 85025; 99214 ==

== ENCOUNTER → 2024-12-12 10:27 | Outpatient (BNVA) | payer OTHER, MEDICAID, SELFPAY | PROVIDERS: PCP Family Medicine; Visit Provider Family Medicine | DX: Z11.59 Encounter for screening for other viral diseases (principal); R97.20 Elevated prostate specific antigen [PSA] | CPT/HCPCS: 84154; 86803 ==

== ENCOUNTER → 2025-03-06 11:54 | Outpatient (BNVA) | payer OTHER, MEDICAID, SELFPAY | PROVIDERS: PCP Family Medicine; Visit Provider Family Medicine | DX: R73.03 Prediabetes (principal); N40.1 Benign prostatic hyperplasia with lower urinary tract symptoms; N13.8 Other obstructive and reflux uropathy; R97.20 Elevated prostate specific antigen [PSA]; I10 Essential (primary) hypertension; N28.9 Disorder of kidney and ureter, unspecified | CPT/HCPCS: 80048; 83036; 84153 ==